=== PATIENT | male | born 1930 | race Caucasian/White ===

== ENCOUNTER 2016-12-29 09:47 | Inpatient (IN) | payer MEDICARE ==
[2016-12-29] VITALS (8 sets, daily range): BP systolic 115–132; BP diastolic 33–48; PULSE 41–45; RESP 9–20; O2SAT 95–99
[~2016-12-29] VITALS: Ht 175.3 cm; Wt 78.2 kg
--- NOTE | 2016-12-29 10:43 | ED.REPORT ---
HPI-Dizziness / Weakness Date of Service December 29, 2016 ED Provider: Wendy Davis MD Patient is an 86 year old male with a history of chronic renal failure and receives dialysis, diabetes, hypertension and a stent placement who was brought to the ED via EMS due to weakness. Associated symptoms include trouble walking and diarrhea onset two days ago. He denies dizziness, shortness of breath, chest pain, abdominal pain, nausea, or headache. Patient reports that he is normally able to urinate but has not today. The patient was seen three days ago at the ED on [address] because he thought he had constipation but then he had diarrhea. He was supposed to have dialysis three days ago but missed his appointment. Nursing Notes Stated Complaint: WEAKNESS Chief Complaint: Weakness Nursing Notes Reviewed: Yes Allergies: Coded Allergies: No Known Allergies (Verified , 12/29/16) Scheduled Aspirin (Aspirin) 81 Mg Tablet 81 MG PO DAILY Carvedilol (Carvedilol) 25 Mg Tablet 25 MG PO BID Finasteride (Finasteride) 5 Mg Tablet 5 MG PO DAILY Furosemide (Furosemide) 20 Mg Tab 20 MG PO DAILY Insulin Human Isophan/Regular (HUMulin 70/30 U100 Insulin Vial) 100 Unit/Ml Ml 10 UNIT SUBQ MORNING Insulin Human Isophan/Regular (HUMulin 70/30 U100 Insulin Vial) 100 Unit/Ml Ml 8 UNIT SUBQ HS Lisinopril (Lisinopril) 40 Mg Tablet 20 MG PO DAILY Lovastatin (Lovastatin) 40 Mg Tablet 40 MG PO HS Nifedipine ER (Nifedipine ER) 90 Mg Tab.er.24 90 MG PO DAILY Terazosin (Terazosin) 5 Mg Capsule 10 MG PO HS Vit B Comp/C/FA/Iron/Vit E (Vitamin B Complex Tablet) 1 Each Tablet 1 EACH PO Dilysis Days General Time Seen by MD: 10:42 Chief Complaint Generalized weakness Hx Obtained From: Patient Arrived By: Ambulance Onset Occurred: Yesterday Associated with: Reports: Weakness, Denies: Chest pain, Headache, Nausea Recent Healthcare: No recent hospitalization, Recent doctor visit Past Medical History Past Medical History chronic renal failure with dialysis treatment Reports: Diabetes mellitus, Hypertension Past Surgical History STENT placement Social History Other Social History: Ambulatory Status Independent Review of Systems Respiratory: Denies: Non-productive cough, Shortness of breath Cardiovascular: Denies: Chest pain GI: Reports: Diarrhea, Denies: Abdominal pain, Nausea Neurologic: Reports: Problem walking, Denies: Dizziness, Headache Complete sys rev & neg: except as marked. Physical Exam Initial Vital Signs Vital Signs (First) Date Time Temp Pulse Resp B/P Pulse Ox O2 Delivery O2 Flow Rate FiO2 12/29/16 11:07 36.6 44 18 126/36 95 Room Air Initial VS: Reviewed, Vital signs abnormal General/Constitutional: Awake, Alert, No acute distress Head / Eyes: Atraumatic, Normocephalic, PERRL, EOMI Respiratory / Chest: Atraumatic, Breath sounds NL, Breath sounds = bilat, No respiratory distress Heart Rate / Rhythm: Positive: Bradycardia Neurologic: Oriented X3, Speech NL, No motor deficits, No sensory deficits Abdomen: Atraumatic, Soft, Non-tender Lower Extremity / Pelvis / MS: Atraumatic, Full range of motion trace edema on both legs Skin: Atraumatic, Color NL, No rash, Warm, Dry Sacral erythema and a half centimeter stage II decubitus ulcer to his gluteal cleft. Psychiatric: Affect NL, Mood NL Upper Extremity / MS: Atraumatic, Full range of motion Interpretation & Diagnostics Lab Results Interpretation Result Diagram: 12/29/16 1100 12/29/16 1100 Test 12/29/16 11:00 White Blood Count 8.3th/mm3 (3.8-10.1) Red Blood Count 2.85mil/mm3 (4.40-5.80) Hemoglobin 8.8g/dL (13.8-17.2) Hematocrit 27.9% (41.0-50.0) Mean Corpuscular Volume 97.9fL (81-100) Mean Corpuscular Hemoglobin 30.9pg (27.0-35.0) Mean Corpuscular Hemoglobin Concent 31.5% (32.0-37.0) Red Cell Distribution Width 15.6% (12.3-15.4) Platelet Count 133bil/L (150-400) Neutrophils (%) (Auto) 80.4% (40-74) Lymphocytes (%) (Auto) 11.3% (14-46) Monocytes (%) (Auto) 7.6% (4-12) Eosinophils (%) (Auto) 0.5% (0-5) Basophils (%) (Auto) 0.1% (0-3) Prothrombin Time 11.8sec (8.1-12.5) Prothromb Time International Ratio 1.10ratio Sodium Level 138mEq/L (134-144) Potassium Level 3.6mEq/L (3.5-5.2) Chloride Level 93mEq/L (97-108) Carbon Dioxide Level 26mmol/L (18-29) Blood Urea Nitrogen 49mg/dL (8-27) Creatinine 5.19mg/dL (0.76-1.27) Estimat Glomerular Filtration Rate 11mL/min (>59) Glucose Level 348mg/dL (60-99) Calcium Level 8.8mg/dL (8.5-10.1) Magnesium Level 2.1mg/dL (1.6-2.6) Total Bilirubin 0.3mg/dL (0.0-1.2) Aspartate Amino Transf (AST/SGOT) 16U/L (0-50) Alanine Aminotransferase (ALT/SGPT) 8U/L (0-44) Alkaline Phosphatase 63U/L (25-160) Troponin T 0.369ug/L (0.0-0.011) Total Protein 5.5g/dL (6.4-8.4) Albumin 3.2g/dL (3.4-5.0) Hold Rodriguez Top Tube Received (Received) ECG Interpretation ECG Interpretation: 3rd degree AV block with junctional escape rhythm rate 45 Time: 11:10 Interpreted by: ED physician X-Ray Chest Interpretation Chest Xray Interpretation: IMPRESSION: Cardiomegaly without overt heart failure. No definite pneumonia. Dictated by: Hair Curran M.D. on 12/29/2016 at 10:58 Approved by: Hair Curran M.D. on 12/29/2016 at 11:02 View: Portable, 1 view Interpretation / Wet Read by: Interpret - Radiologist Re-Eval/Medical Decision Med Decision/Clinical Course The patient presents with weakness which is likely related to his bradycardia and heart block. Patient is on Coreg which could be causing his symptoms or he may need a pacemaker. His weakness also be related to a NSTEMI. I spoke with Dr. Marroquin regarding this patient. While in bed the patient does not have any complaints and maintains his blood pressure. The patient is on dialysis and another consideration was electrolyte abnormality, he does not have any significant change would explain his symptoms. Re-Evaluation/Progress : Time of Eval: 11:43 Re-Evaluation/Progress Note: Discussed plan for admit. The patient understands and agrees to the plan for admit. All questions were addressed. 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: Agrees with eval, Agrees with plan, Accepts admit Consultation #2: Referral / Consult Name: Refugio Travis MD Consulted With: Neurology Call Returned at: 12:49 Oil Pipeline Operator: Agrees with eval, Agrees with plan Consultation #3: Referral / Consult Name: Josafat Mcdonald Consulted With: Hospitalist Call Returned at: 13:04 Oil Pipeline Operator: Agrees with eval, Agrees with plan, Accepts admit Counseled Regarding: Diagnosis, Lab results, Need for admission Patient Discharge & Departure Impression: Primary Impression: AV block, 3rd degree Additional Impression: NSTEMI (non-ST elevated myocardial infarction) Disposition: ADMITTED TO HOSPITAL Discharge Condition All VS Reviewed: Yes Condition: Stable Referrals: Denilson Kwan DO (PCP) Elliot Attestation Portions of this note were transcribed by Luz Trinidad. I, Dr. Davis personally performed the history, physical exam and medical decision-making; I reviewed and confirmed the accuracy of the information in the transcribed note. Signed by: Elliot Rodriguez, 12/29/16 and 1100 Denilson Kwan Jena M MD December 29, 2016 10:43 Cate Trinidad December 29, 2016 10:54
[2016-12-29] MEDS ORDERED: 0.9% Sodium Chloride 250 ML IV ONE (10:55)
[2016-12-29 11:22] LABS: BASOPHILS % (AUTO) 0.1 % (0-3); EOSINOPHILS % (AUTO) 0.5 % (0-5); MONOCYTES % (AUTO) 7.6 % (4-12); Mean Corpuscular Hemoglobin 30.9 pg (27.0-35.0); Mean Corpuscular Volume 97.9 fL (81-100); NEUTROPHILS % (AUTO) 80.4 % (40-74); Platelet Count 133 bil/L (150-400)
[2016-12-29 11:31] LABS: INR 1.1 ratio
--- NOTE | 2016-12-29 12:03 | DRSVH ---
PROCEDURE: X-RAY CHEST ONE VIEW, PORTABLE ([id number]) INDICATIONS: weakness TECHNIQUE: One view of the chest was acquired. COMPARISON: None. FINDINGS: Surgical changes and devices: None. Lungs and pleura: No pleural effusions or pneumothorax. Lungs are clear. Mediastinum: Mediastinal contours appear normal. Heart size is enlarged. There is aortic atheroscl erosis. Bones and chest wall: No suspicious bony lesions. Overlying soft tissues appear unremarkable. IMPRESSION: Cardiomegaly without overt heart failure. No definite pneumonia. Dictated by: Hair Curran M.D. on 12/29/2016 at 10:58 Approved by: Hair Curran M.D. on 12/29/2016 at 11:02
[2016-12-29 12:14] LABS: Magnesium 2.1 mg/dL (1.6-2.6)
[2016-12-29 12:26] LABS: TROPONIN T 0.369 ug/L (0.0-0.011)
[2016-12-29] MEDS ORDERED: LISI40TA PO (12:50)
[2016-12-29] MEDS ORDERED: TERA5CAP6 PO (12:50)
[2016-12-29] MEDS ORDERED: LOVA40TA PO (12:50)
[2016-12-29] MEDS ORDERED: ASPI-973 PO (12:50)
[2016-12-29] MEDS ORDERED: INS7030 SUBQ ×2 (12:50)
[2016-12-29] MEDS ORDERED: CARV25TA2 PO (12:50)
[2016-12-29] MEDS ORDERED: NIFE90TA31 PO (12:50)
[2016-12-29] MEDS ORDERED: VIT1TABL83 PO (12:50)
[2016-12-29] MEDS ORDERED: FUR20 PO (12:50)
[2016-12-29] MEDS ORDERED: FINA5TAB9 PO (12:50)
[2016-12-29] MEDS ORDERED: Ondansetron 2 mg/mL 2 mL Inj IVPUSH PRN ×2 (13:20→15:25)
[2016-12-29] MEDS ORDERED: Alum-Mag Hydrox-Simeth 30 mL Suspension PO PRN ×2 (13:20→15:25)
[2016-12-29] MEDS ORDERED: Polyethylene Glycol (PEG) 17 Gm Powder PO PRN (15:25)
--- NOTE | 2016-12-29 15:59 | CONS ---
[address] [address] CONSULTATION REPORT PATIENT: CRISELDA FOSS : 1930 MR#: [id number] ADMIT: 12/29/2016 JOB ID: [id number] RENAL CONSULTATION: DATE OF SERVICE: 12/29/2016 HISTORY: The patient is a very pleasant, 86-year-old, white male, who was admitted to [facility] for acute third-degree AV block. He has a history of end-stage renal disease and missed his dialysis treatment yesterday. Renal consultation is being sought for further evaluation of his end-stage renal disease. He states that he has recently started dialysis and is dialyzed over at the [facility]. He is followed by an outside second officer. He states that he has had seven treatments and was scheduled to have a treatment yesterday which he missed due to diarrhea. He states that he had diarrhea for about 1-2 days and this apparently has improved with some [id number] Imodium. He denies any associated nausea, vomiting, fever, chills, cough, wheezing, or sore throat. He states that today he had some mild weakness and subsequently experienced a near syncopal episode without full loss of consciousness. He was brought to the emergency department and in the emergency department, he was found to have a third-degree AV block. Paradoxically his potassium was 3.6. He denies any associated chest pain, shortness of breath, dizziness, lightheadedness, headache, scotomas, or amaurosis fugax. He denies any seizure history or any reports of any seizure or incontinence. As noted above, he recently started dialysis. The etiology of his renal failure is most likely due to diabetes and hypertensive renal disease. He also has a history of hyperlipidemia, coronary artery disease, and has undergone stent placement in 2005. He denies a history of any prior stroke or congestive heart failure. Since starting dialysis, he states that he has not had any problems with breathing or worsening of his symptomatology until recently. He does have some dyspnea on exertion and some intermittent lower extremity edema. Otherwise he denies any cough, wheezing, orthopnea or rashes. PAST MEDICAL HISTORY: Significant for: 1. End-stage renal disease-dialysis dependent. 2. 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 3. Hypertension with hypertensive heart disease and hypertensive nephrosclerosis. 4. Coronary artery disease with stent placement as detailed above. 5. Benign prostatic hypertrophy. 6. History of skin cancer. He denies any history of any thyroid illness, or other malignancies. PAST SURGICAL HISTORY: Significant for a left AV fistula placed in [facility] in October, and coronary artery stent placed in 2004. ALLERGIES: He is not allergic to any food or any medications. SOCIAL HISTORY: He currently denies use of any alcohol, tobacco, or illicit drugs. He lives with his family and is able to take care of his basic activities of daily living and personal needs. MEDICATIONS: At time of admission include aspirin, carvedilol, finasteride, furosemide, insulin, lisinopril, lovastatin, nifedipine, terazosin, and vitamin tablet. FAMILY HISTORY: Noncontributory. REVIEW OF SYSTEMS: Detailed above. Otherwise is noncontributory. PHYSICAL EXAMINATION: Revealed a well-developed, 86-year-old, white male who was alert and oriented x3, in no distress at time of my evaluation. Blood pressure 126/36 with a pulse rate of 44. HEENT examination is remarkable for pale sclerae. Neck is supple without adenopathy, thyromegaly or jugular venous distention. Lungs showed a few bibasilar rales but otherwise were clear. Heart was regular and rhythmical, although quite bradycardic and there was a grade 2/6 systolic ejection murmur. Abdomen is soft, without tenderness, rebound, guarding, masses or hepatosplenomegaly. Extremities did not show any evidence of any clubbing, cyanosis, or edema. Skin turgor was good and there were no evidence of any rashes. He did have a number of areas of hypopigmentation and scarring on his head and face from old skin cancers which have been treated. LABORATORY EXAMINATION: His white count was 8.3, hemoglobin 8.8, hematocrit 24.9, red cell indices, platelet count and differential were normal. His PT was 11.8, PTT was 1.1. Sodium is 138, potassium 3.6, chloride of 93, bicarbonate 26, BUN and creatinine were 49 and 5.19. Glucose was 348. IMPRESSION: 1. End-stage renal disease-dialysis dependent. 2. Hypertension with hypertensive heart disease and hypertensive nephrosclerosis. 3. Diabetic nephropathy. 4. Third-degree atrioventricular block. 5. Benign prostatic hypertrophy. RECOMMENDATION: The patient will be dialyzed today for 4 hours on a MAX Dialyzer, for potassium bath, 450 blood flow, 1200 unit bolus of heparin and 500 per hour and will take approximately 1 L of fluid off of him today. I will schedule him for a follow up treatment tomorrow. Once again, I would like to thank you for allowing me to participate in the care of this most pleasant and interesting patient. I will be following him closely with you. TOTAL TIME: 45 minutes.
[2016-12-29] MEDS: Heparin 5,000 Unit/mL Inj SUBQ SCH (16:38)
--- NOTE | 2016-12-29 16:41 | PCM.HPMED ---
Subjective Date of Service December 29, 2016 Primary Provider: Admitting Physician: Josafat Mcdonald Primary Care Physician: Denilson Kwan DO Attending Physician: Josafat Mcdonald Admit Status: From the Emergency Department Chief Complaint: Generalized weakness. History of Present Illness: Mr. Deleon is an 86-year-old gentleman with a history of chronic renal insufficiency on hemodialysis (,,Sun) secondary to diabetic nephropathy, hypertension, and coronary artery disease status post stent placement in the . He presented to the emergency department via EMS for generalized weakness after his leg "gave out" after breakfast. He states that he has been in his usual health until two days ago when he presented to the hospital in [place] for constipation. He states that he thought he was constipated but it turns out he actually had diarrhea. He states that he was given an enema and that they didn't really seem to know what they were doing. He denies fever, chills, abdominal pain, bloody or dark stool. He reports that he is normally able to urinate but has not today and missed his dialysis due to his diarrhea. His last dialysis appointment was on Sunday (12/26/16). Additionally he denies dizziness, shortness of breath, chest pain, focal weakness, changes in speech or loss of consciousness. In the emergency department, vitals: 36.6, BP 126/36, HR 44, SpO2 95% on room air. Labs significant for Troponin 0.369, BUN 49, Creatinine 5.19, Sodium 138, Potassium 3.6, Chloride 93, Bicarb 26, Glucose 348. Hb 8.8, Hct 27.9. ECG 3rd degree AV block with junctional escape rhythm rate 45. Chest xray shows cardiomegaly and focal consolidation. Review of Systems: A comprehensive review of systems was conducted with the patient and found to be negative except as above in the History of Present Illness. Allergies Coded Allergies: No Known Allergies (Verified , 12/29/16) Home Medications Aspirin 81 MG PO DAILY Carvedilol 25 MG PO BID Finasteride 5 MG PO DAILY [id number] MG PO DAILY HUMulin 70/30 U100 Insulin Vial, 10 UNIT SUBQ MORNING HUMulin 70/30 U100 Insulin Vial, 8 UNIT SUBQ HS Lisinopril 20 MG PO DAILY Lovastatin 40 MG PO HS Nifedipine ER 90 MG PO DAILY Terazosin 10 MG PO HS Vitamin B Complex1 EACH PO Dialysis Days Exam Lab & Micro Results Microbiology 12/30/16 MRSA (PCR) - Final, Complete Review of Systems: Constitutional: Negative, except as otherwise mentioned in the history above. Ophthalmologic: Negative, except as otherwise mentioned in the history above. Cardiovascular: Negative, except as otherwise mentioned in the history above. Respiratory: Negative, except as otherwise mentioned in the history above. Gastrointestinal: Negative, except as otherwise mentioned in the history above. Genitourinary: Negative, except as otherwise mentioned in the history above. Musculoskeletal: Negative, except as otherwise mentioned in the history above. Neurological: Negative, except as otherwise mentioned in the history above. Psychiatric: Negative, except as otherwise mentioned in the history above. Hematologic/Lymphatic: Negative, except as otherwise mentioned in the history above. Allergic/Immunologic: Negative, except as otherwise mentioned in the history above. PMH Diabetes mellitus, on insulin therapy. Chronic renal failure, on dialysis T,Th,Sat Hypertension Hyperlipidemia Coronary artery disease s/p stent placement in . Surgical History STENT placement Family History Patient reports history of diabetes, hypertension and heart disease in multiple family members. Father, mother and brother. Social History Occupation: Retired Hx Alcohol Use: Yes ("Ocassionally") Hx Substance Use: No Hx Tobacco Use: No Smoking Status: Never Smoker Living Arrangement: with Family Additional Information Mr. 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 He now lives in [place] with his . He has no children. Drinks alcohol occasionally. Denies tobacco or other drugs. Exam Vital Signs Vital Sign - Last Date Time Temp Pulse Resp B/P Pulse Ox O2 Delivery O2 Flow Rate FiO2 12/29/16 13:46 36.7 43 18 132/42 96 Room Air Exam General: Well appearing, elderly male, in no acute distress. Alert and oriented. HEENT: Normocephalic, atraumatic. External ears without defect. Pupils equal, round, and reactive to light and accommodation. Anicteric sclerae. Oral mucosa pink/moist. Neck: Supple, nontender, no JVD, bruits or lmphadenopathy appreciated. Cardiovascular: Bradycardic with regular rhythm, no murmurs, rubs or gallops heard. Pulmonary: Clear to auscultation bilaterally with no crackles, wheezes, or rhonchi. Abdomen: Bowel tones present. Soft, nontender, nondistended. No hepatosplenomegaly or masses appreciated. Extremities: Moderate pitting edema to just below the knee bilaterally. No cyanosis or clubbing. Left antecubital AV fistula, no erythema, tenderness or induration. Skin: Normal temperature, turgor, and texture; no rashes. Mild sacral erythema and a half centimeter abrasion on gluteal cleft. Neurological: Cranial nerves grossly intact.Normal muscle strength, tone, and bulk. No known gait impairment. Psychiatric: Normal mood and affect. Alert and oriented to person, place, and time. Lab and Diagnostics Labs Laboratory Tests Test 12/29/16 11:00 White Blood Count 8.3th/mm3 (3.8-10.1) Red Blood Count 2.85mil/mm3 (4.40-5.80) Hemoglobin 8.8g/dL (13.8-17.2) Hematocrit 27.9% (41.0-50.0) Mean Corpuscular Volume 97.9fL (81-100) Mean Corpuscular Hemoglobin 30.9pg (27.0-35.0) Mean Corpuscular Hemoglobin Concent 31.5% (32.0-37.0) Red Cell Distribution Width 15.6% (12.3-15.4) Platelet Count 133bil/L (150-400) Neutrophils (%) (Auto) 80.4% (40-74) Lymphocytes (%) (Auto) 11.3% (14-46) Monocytes (%) (Auto) 7.6% (4-12) Eosinophils (%) (Auto) 0.5% (0-5) Basophils (%) (Auto) 0.1% (0-3) Prothrombin Time 11.8sec (8.1-12.5) Prothromb Time International Ratio 1.10ratio Sodium Level 138mEq/L (134-144) Potassium Level 3.6mEq/L (3.5-5.2) Chloride Level 93mEq/L (97-108) Carbon Dioxide Level 26mmol/L (18-29) Blood Urea Nitrogen 49mg/dL (8-27) Creatinine 5.19mg/dL (0.76-1.27) Estimat Glomerular Filtration Rate 11mL/min (>59) Glucose Level 348mg/dL (60-99) Calcium Level 8.8mg/dL (8.5-10.1) Magnesium Level 2.1mg/dL (1.6-2.6) Total Bilirubin 0.3mg/dL (0.0-1.2) Aspartate Amino Transf (AST/SGOT) 16U/L (0-50) Alanine Aminotransferase (ALT/SGPT) 8U/L (0-44) Alkaline Phosphatase 63U/L (25-160) Troponin T 0.369ug/L (0.0-0.011) Total Protein 5.5g/dL (6.4-8.4) Albumin 3.2g/dL (3.4-5.0) Hold Rodriguez Top Tube Received (Received) X-Rays, CTs and MRIs (12/29/16) X-RAY CHEST ONE VIEW, PORTABLE IMPRESSION: Cardiomegaly without overt heart failure. No definite pneumonia. Dictated and approved by: Hair Curran M.D. on 12/29/2016 at 10:58 12-lead ECG ECG 3rd degree AV block with junctional escape rhythm rate 45 Assessment & Plan 86-year-old gentleman with a history of chronic renal insufficiency on hemodialysis (T,Th,Sat) secondary to diabetic nephropathy, hypertension, and coronary artery disease status post stent placement in the . He presented to the emergency department with generalized weakness and subsequently admitted for further evaluation and management of third degree AV block and possible NSTEMI. 1. AV block, 3rd degree. Present on admission. Active. -Uncertain chronicity. Possibly secondary to ischemic heart disease, hypo- or hyper thyroidism,or medications (patient on beta chrissy, calcium channel chrissy). -Troponin elevated, 0.032. -Will check TSH/T4 -Cardiology recommend holding beta chrissy, calcium channel chrissy for 48hrs. If block does not resolve, will evaluate for pacemaker placement. -Monitor on telemetry -Trend troponin. -Continue aspirin 81mg daily, lovastatin 40mg QHS. -Transcutaneous pacer pads 2. Possible secondary to NSTEMI , acute. Present on admission. Active. -Elevated troponin, 0.032. Patient has known coronary artery disease and multiple risk factors: hypertension, hyperlipidemia, diabetes, age. It is possible elevated troponin is secondary to chronic renal failure, or demand ischemia. ECG showed 3rd degree AV block no acute ST changes. -Monitor on telemetry. -Continue statin, aspirin -Hold carvedilol, as above -Trend troponin -SL nitro and IV morphine prn for chest pain, as long as BP tolerates 3. Chronic renal failure. Present on admission. Active -Likely secondary to diabetic and hypertensive nephropathy. Patient started on dialysis approximately 2 weeks ago. Missed Thurs dialysis due to diarrhea. -Last dialyzed on 12/27. -Nephrology consulted from the emergency dept. -Dialysis, IV fluids and diuretics. Per nephrology. Appreciate recommendations -Hold furosemide 20mg daily, pending dialysis and Nephrology recs. -Hold lisinopril -Follow BMP 4. Diabetes mellitus, chronic. Present on admission. Presumed stable. -Home regimen: Regular insulin 70/30- 10U subq QAM; Regular insulin 8U subq HS -HbA1c pending -Low dose correctional insulin lispro ordered -Start basal insulin when patient eating. 5. Hypertension, chronic. Present on admission. Presumed stable. -Currently normotensive. -Hold carvedilol, as above. -Hold home anti-hypertensives, as above. 6. Anemia, unknown chronicity. Present on admission. Presumed stable. -Likely chronic and secondary to chronic renal insufficiency. -Hb 8.8 on admission. No signs/symptoms of blood loss or active bleeding. -Follow H/H Acetaminophen-fever/headache/mild/moderate pain Antiemetics, as needed Bowel regimen, as needed. Disposition: Patient admitted under inpatient status with expected length of stay > 2 midnights for severity of present symptoms, complexities of treatment plan and risk for adverse event. VTE Prophylaxis: Sub-Q Heparin (Unfractionated) Resuscitation Status: DNR/DNI:Do Not Resuscitate/Intubate (discussed and verified with patient) Attending Statement The patient was seen and examined together with Resident/House-staff on 12/29/16 and I agree with the history, exam and plan as outlined in the note above. Chelsea Cuellar DO December 29, 2016 13:54 Josaaft Mcdonald January 11, 2017 17:36
--- NOTE | 2016-12-29 16:49 | NUR ---
Admit note Patient admitted from [facility] ER via stretcher, amb in room with sba steady gait. Tele 3rd degree HB, HR 40's. See vitals. Patient denies pain, nausea or sob. 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 Left arm fistula with good bruit and thrill, furniture duster paged per Mercedes RN and dialysis equipment set up. Patient oriented to call light, tv, phone, bathroom and poc. Will cont to monitor.
[2016-12-29] MEDS ORDERED: Dextrose 10% 250 ML IV PRN (20:05)
[2016-12-29] MEDS ORDERED: Insulin Human NPH-Reg 70-30 100 Unit/mL 10 ML Mdv SUBQ SCH ×2 (20:30)
[2016-12-29] MEDS: Insulin Human REGular 300 Unit/3 mL Inj SUBQ SCH (20:30)
--- NOTE | 2016-12-29 23:09 | NUR ---
Dialysis note: 4 hr tx, Net UF 1000. Pt has left UA fistula used 7 times. I was unable to access x 2 tries, and called Ana richmond, over to access. 17 g needles, lidocaine used, total attempts: arterial x 3, venous x 2. QB 250 with arterial pressures 130, venous pressures 130 - 140. Pt is bradycardiac, HR 40 - 44. Had intermittent PVCs throughout tx; primary RN aware. Pt was stable, calm, resting or talking throughout tx. Site held by RN x 7 min and secured with tape and gauze. Pt stable in room at end of tx. Please see DTR for complete record of VS.
[2016-12-30] VITALS (10 sets, daily range): BP systolic 118–163; BP diastolic 33–91; PULSE 41–45; RESP 13–20; O2SAT 93–99
[2016-12-30] MEDS: Heparin 5,000 Unit/mL Inj SUBQ SCH ×4 (01:56→23:55)
[2016-12-30] MEDS: Insulin Human REGular 300 Unit/3 mL Inj SUBQ SCH ×4 (02:30→20:38)
--- NOTE | 2016-12-30 05:57 | NUR ---
Tele Patient continues to be in 3rd degree AV block with heart rates 39-44. Pacer pads in place and zoll unit at bedside. Patient denies chest discomfort or shortness of breath. Continue to monitor.
[2016-12-30 07:42] LABS: BASOPHILS % (AUTO) 0.5 % (0-3); EOSINOPHILS % (AUTO) 2.7 % (0-5); MONOCYTES % (AUTO) 10.3 % (4-12); Mean Corpuscular Hemoglobin 30.7 pg (27.0-35.0); Mean Corpuscular Volume 98.2 fL (81-100); NEUTROPHILS % (AUTO) 64.8 % (40-74); Platelet Count 128 bil/L (150-400)
[2016-12-30 08:56] LABS: TROPONIN T 0.376 ug/L (0.0-0.011)
--- NOTE | 2016-12-30 09:31 | CONS ---
[address] [address] CONSULTATION REPORT PATIENT: CRISELDA FOSS : 1930 MR#: [id number] ADMIT: 12/29/2016 JOB ID: [id number] DATE: 12/30/2016 CARDIOLOGY CONSULTATION: Dr. Cuellar has asked that I consult on this 86-year-old male admitted to the emergency department with bradycardia from complete heart block. DATE OF SERVICE: HISTORY: The patient's cardiac history dates back to 2004 when he presented with progressive exertional angina and known renal insufficiency with a creatinine of 2.0. He had a left anterior fascicular block at that time, and underwent stress testing that showed a large distal anterior, apical, and distal inferior area of ischemia and, therefore, underwent cardiac catheterization in 2005 revealing a 90% stenosis in a large LAD after the takeoff of a large diagonal which itself had a 70% proximal stenosis but no other significant coronary disease. His ejection fraction was 74% with apical akinesis. A bare metal stent was placed to the LAD and angioplasty to the diagonal with resolution of his angina with a post procedural creatinine at 2.3. He subsequently failed followup and has not seen a painter and body work since then but states that he has done well, remaining fairly active although with progressive renal insufficiency requiring institution of hemodialysis around one month ago in [place]. He was generally doing well until two days prior to admission when he developed some diarrhea that caused him to miss a hemodialysis appointment and the following day noted profound weakness when he got up to walk and had to sit down on the floor but had no presyncopal symptoms. Medics were summoned and found him to have a heart rate of 42 and he was brought to the emergency department where his ECG showed a complete heart block at 42, with a probable junctional escape with a left anterior fascicular block. He had no sense of any chest discomfort or change in his chronic dyspnea which actually has been improving since initiation of his dialysis. No abdominal discomfort. He has been on carvedilol 25 mg b.i.d. for years and took his last dose yesterday morning. While at rest, he is essentially asymptomatic and his carvedilol has been held. His potassium was 3.6 with a BUN of 49 and a creatinine of 5.2 with a glucose of 348 and underwent hemodialysis yesterday, but remained in complete heart block this morning. He denies any anginal symptoms or significant dyspnea. He has had some recent edema that improved after hemodialysis. He has not noted any change in his exercise capacity until yesterday. CARDIAC RISK FACTORS: Notable for significant diabetes, hypertension and hyperlipidemia. He has never smoked. He denies any family history of any premature coronary artery disease except for hypertension. PAST MEDICAL HISTORY: Only notable for his diabetes and renal failure. HOME MEDICATIONS: 1. Aspirin 81 mg daily. 2. Carvedilol 25 mg b.i.d. 3. Finasteride 5 mg daily. 4. Furosemide 20 mg daily. 5. Humulin insulin. 6. Lisinopril 20 mg daily. 7. Lovastatin 40 mg q.h.s. 8. Nifedipine 90 mg daily. 9. Terazosin 10 mg q.h.s. 10. Vitamin D. FAMILY HISTORY: As above. 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 He has two alcoholic beverages on average per month. REVIEW OF SYSTEMS: A complete review is performed and is notable for the absence of any recent fevers or chills. He has had a 10-pound weight loss over the last 1-2 months since starting hemodialysis. He denies any recent vision changes or ENT problems although is somewhat hard of hearing. He has had chronic exertional dyspnea which is improved since initiating dialysis. He denies any cough or hemoptysis. No history of any peptic ulcer disease or GI blood loss. Denies any genitourinary complaints or hematuria. He continues to have good urine output. Denies any musculoskeletal complaints. Denies any neurologic symptoms although was evaluated for a possible TIA in 1999 but this was never confirmed, and has not had any problems since then. Denies any history of any thyroid or bleeding disorder. Denies any unusual anxiety or depression. PHYSICAL EXAMINATION: Very pleasant, elderly white male lying comfortably in bed in no distress. HR 42, BP 151/46, O2 saturation 97% on room air. Weight is 81.9 kg, up from 80.4 kg yesterday. Skin: Warm and dry. The nurses report a small decubitus ulcer on his right buttock. He states this is from sitting in dialysis and now takes a pillow to dialysis. HEENT: EOMI. Without arcus. He has fair dentition. Lungs: Clear to auscultation and percussion. No rales or wheeze. CV: Nonpalpable PMI with a slow regular rhythm with a 2/6 systolic ejection murmur that radiates to both carotids but to have a normal upstroke without any appreciable bruit. JVP is 7-8 cm. Dorsalis pedis is 2+ on the right and nonpalpable on the left while posterior tibial pulse is nonpalpable on the right and 2+ on the left. Abdomen: Soft, nondistended, nontender without any palpable masses or organomegaly. Normal bowel tones are present without bruits. Extremities: Warm with trace bilateral foot edema. Neuro: Moves all four extremities. Psych: Awake, alert and oriented. LABORATORY: His initial troponin was 0.369 and has subsequently fallen. His potassium yesterday was 3.6 with a BUN of 49 and a creatinine of 5.2, and is pending this morning. White count is 6.0 with a hematocrit of 27%. TSH is normal at 2.2 and his total cholesterol is 101 with an LDL of 52 and an HDL of 27. EKG: Shows a complete heart block at 42 BPM with a probable junctional escape with a left anterior fascicular block. Chest x-ray: Shows no evidence of CHF. IMPRESSION: 1. 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 He remained hemodynamically stable. I would continue to let his carvedilol washout. If he continues to have evidence of high-grade AV block 48 hours after his last dose, which would be sometime tomorrow, then pacemaker implantation would be indicated. I have discussed this with him and he is agreeable to proceed with this. This can be scheduled either Sunday or Sunday. His decubitus ulcer should be aggressively treated in an effort to avoid any possible skin infection that could compromise the sterility at the time of implantation. In the meantime, I would simply continue to monitor him and avoid any AV cristobal blocking agents. 2. Coronary artery disease status post stenting. He gives no anginal symptoms and I suspect that his elevated troponin is simply a reflection of his renal insufficiency. An echocardiogram will be obtained. I would not pursue any ischemic evaluation at this point. 3. Diabetes, poorly controlled. Per the hospitalist. 4. Hyperlipidemia. Adequately controlled, but I would change him to atorvastatin. 5. Hypertension. Continue with CHELI inhibitor with management per the nephrology team. 6. Decubitus ulcer. Will need to be monitored closely. PLAN: 1. Continue to withhold carvedilol and any other AV cristobal anti blocking agent. 2. Check an echocardiogram. 3. Continue to track electrolytes and renal function. 4. Consider pacemaker implantation on Sunday or Sunday depending on his decubitus ulcer and availability of a pacemaker implanting painter and body work. I spent 1 hour and 42 minutes reviewing the patient's records, discussing with Dr. Kraft, interviewing and examining the patient, and answering his questions. ALTHEA
--- NOTE | 2016-12-30 12:29 | PCM.PNNEPH ---
Subjective Date of Service December 30, 2016 Subjective The patient remains in bradycardic third-degree block. He offers no new complaints and denies any headache, chest pain, shortness of breath, nausea or vomiting. Exam Vital Signs Vital Sign - Last Date Time Temp Pulse Resp B/P Pulse Ox O2 Delivery O2 Flow Rate FiO2 12/30/16 12:12 36.9 45 16 118/91 97 Room Air Intake and Output 12/29/16 12/29/16 12/30/16 Cumulative From/Thru 15:00 23:00 07:00 12/29/16 11:07 - 12/30/16 05:37 Intake Total 250 ml 250 ml Output Total 1000 ml 100 ml 1100 ml Balance 250 ml -1000 ml -100 ml -850 ml Intake IV Total 250 ml 250 ml Output Urine Total 100 ml 100 ml Ultrafiltrate 1000 ml 1000 ml Exam Neck is supple without adenopathy, thyromegaly, or jugular venous distention. Lungs are clear to auscultation. Heart is quite bradycardic with an estimated rate between 40 and 50. Abdomen is soft without any tenderness or rebound guarding masses or hepatosplenomegaly. Extremities do not show any evidence of any clubbing, cyanosis, or edema. Skin turgor is good. Lab and Diagnostics Result Diagram: 12/30/16 0732 12/30/16 0732 X-Rays, CTs and MRIs (12/29/16) X-RAY CHEST ONE VIEW, PORTABLE IMPRESSION: Cardiomegaly without overt heart failure. No definite pneumonia. Dictated and approved by: Hair Curran M.D. on 12/29/2016 at 10:58 12-lead ECG ECG 3rd degree AV block with junctional escape rhythm rate 45 Plan Impression Impression #1 end-stage renal disease dialysis dependent number to diabetic nephropathy #3 hypertension with hypertensive heart disease and hypertensive nephrosclerosis number for third-degree AV block. 5 benign prostatic hypertrophy. Recommendations #1 I would like to do a short dialysis treatment on him today to get him back in his usual schedule. The patient is to be dialyzed today for 2-1/2 following A Max Dialyzer, 400-450 Blood Flow As Tolerated, 600 Dialysate Flow, We Will Use 17-gauge Sasser, 3 Potassium Bath, 1200 of Heparin Bolus and We Will Attempt to Take 1-1/2 L of fluid. Felix Travis DO December 30, 2016 12:29
--- NOTE | 2016-12-30 15:14 | PCM.PNMED ---
Subjective Date of Service December 30, 2016 Subjective Mr. Deleon is an 86-year-old gentleman with a history of chronic renal insufficiency on hemodialysis (T,Th,Sat) secondary to diabetic nephropathy, hypertension, and coronary artery disease status post stent placement in the . He presented to the emergency department with generalized weakness and was subsequently admitted for further evaluation and management of third degree AV block, possible NSTEMI and chronic renal failure. Admitted to [facility] with telemetry and transcutaneous pacer pads in place. Per nursing, patient had a restful night with continued third degree AV block with heart rates 40s. He was dialyzed with 1L fluid removed. Today he states that he is doing well and without symptoms. He denies dizziness, chest pain, shortness of breath, abdominal pain, nausea or vomiting. Exam Vital Signs Vital Sign - Last Date Time Temp Pulse Resp B/P Pulse Ox O2 Delivery O2 Flow Rate FiO2 12/30/16 14:00 44 12/30/16 12:12 36.9 16 118/91 97 Room Air Intake and Output 12/29/16 12/29/16 12/30/16 Cumulative From/Thru 14:59 22:59 06:59 12/29/16 11:07 - 12/30/16 05:37 Intake Total 250 ml 250 ml Output Total 1000 ml 100 ml 1100 ml Balance 250 ml -1000 ml -100 ml -850 ml Intake IV Total 250 ml 250 ml Output Urine Total 100 ml 100 ml Ultrafiltrate 1000 ml 1000 ml Exam General: Well appearing, elderly male, in no acute distress. Alert and oriented. HEENT: Normocephalic, atraumatic. External ears without defect. Pupils equal, round, and reactive to light and accommodation. Anicteric sclerae. Oral mucosa pink/moist. Neck: Supple, nontender, no JVD, bruits or lmphadenopathy appreciated. Cardiovascular: Bradycardic with regular rhythm, no murmurs, rubs or gallops heard. Pulmonary: Clear to auscultation bilaterally with no crackles, wheezes, or rhonchi. Abdomen: Bowel tones present. Soft, nontender, nondistended. No hepatosplenomegaly or masses appreciated. Extremities: Moderate pitting edema to just below the knee bilaterally. No cyanosis or clubbing. Left antecubital AV fistula, no erythema, tenderness or induration. Skin: Normal temperature, turgor, and texture; no rashes. Mild sacral erythema and a half centimeter abrasion on gluteal cleft. Neurological: Cranial nerves grossly intact.Normal muscle strength, tone, and bulk. No known gait impairment. Psychiatric: Normal mood and affect. Alert and oriented to person, place, and time. IVs and Medications Medications Reviewed: Medications were reviewed in detail Lab and Diagnostics Laboratory Tests Test 12/29/16 18:13 12/29/16 18:30 12/30/16 01:18 12/30/16 07:32 Urine Color Dark yellow (YELLOW) Urine Appearance Clear (CLEAR,HAZY) Urine pH 6.5 (5.0-8.0) Urine Specific [place] 1.015 (1.003-1.035) Urine Protein >300mg/dL (NEG,TRACE) Urine Glucose (UA) Negativemg/dL (NEGATIVE) Urine Ketones Negativemg/dL (NEGATIVE) Urine Occult Blood Negative (NEGATIVE) Urine Nitrite Negative (NEGATIVE) Urine Bilirubin Negative (NEGATIVE) Urine Urobilinogen Normalmg/dL (NORMAL) Urine Leukocyte Esterase Negative (NEGATIVE) Urine RBC 0-2/hpf (0-2) Urine WBC 0-5/hpf (0-5) Urine Epithelial Cells Occasional/hpf (NONE-MOD) Urine Crystals None seen (NONE SEEN) Urine Bacteria None/hpf (NONE-FEW) Urine Hyaline Casts None/lpf (NONE) Urine Granular Casts None seen (NONE SEEN) Urine Waxy Casts None seen (NONE SEEN) Urine Red Blood Cell Casts None seen (NONE SEEN) Urine White Blood Cell Casts None seen (NONE SEEN) Urine Mucus None seen (None Seen) Urine Trichomonas None seen (NONE SEEN) Urine Yeast None (NONE SEEN) Urine Culture Reflexed Not indicated Troponin T 0.385ug/L (0.0-0.011) 0.318ug/L (0.0-0.011) 0.376ug/L (0.0-0.011) Triglycerides Level 109mg/dL (0-149) Cholesterol Level 101mg/dL (100-199) LDL Cholesterol, Calculated 52.200mg/dL (0-99) VLDL Cholesterol 21.800mg/dL HDL Cholesterol 27mg/dL (>39) Cholesterol/HDL Ratio 3.74 (0.0-4.4) Thyroid Stimulating Hormone (TSH) 2.220uIU/mL (0.450-4.500) White Blood Count 6.0th/mm3 (3.8-10.1) Red Blood Count 2.74mil/mm3 (4.40-5.80) Hemoglobin 8.4g/dL (13.8-17.2) Hematocrit 26.9% (41.0-50.0) Mean Corpuscular Volume 98.2fL (81-100) Mean Corpuscular Hemoglobin 30.7pg (27.0-35.0) Mean Corpuscular Hemoglobin Concent 31.2% (32.0-37.0) Red Cell Distribution Width 15.6% (12.3-15.4) Platelet Count 128bil/L (150-400) Neutrophils (%) (Auto) 64.8% (40-74) Lymphocytes (%) (Auto) 21.5% (14-46) Monocytes (%) (Auto) 10.3% (4-12) Eosinophils (%) (Auto) 2.7% (0-5) Basophils (%) (Auto) 0.5% (0-3) Sodium Level 137mEq/L (134-144) Potassium Level 3.6mEq/L (3.5-5.2) Chloride Level 93mEq/L (97-108) Carbon Dioxide Level 28mmol/L (18-29) Blood Urea Nitrogen 23mg/dL (8-27) Creatinine 3.35mg/dL (0.76-1.27) Estimat Glomerular Filtration Rate 19mL/min (>59) Glucose Level 121mg/dL (60-99) Calcium Level 8.4mg/dL (8.5-10.1) Total Bilirubin 0.4mg/dL (0.0-1.2) Aspartate Amino Transf (AST/SGOT) 15U/L (0-50) Alanine Aminotransferase (ALT/SGPT) 8U/L (0-44) Alkaline Phosphatase 54U/L (25-160) Total Protein 5.1g/dL (6.4-8.4) Albumin 3.0g/dL (3.4-5.0) Result Diagram: 12/30/16 0732 12/30/16 0732 X-Rays, CTs and MRIs (12/29/16) X-RAY CHEST ONE VIEW, PORTABLE IMPRESSION: Cardiomegaly without overt heart failure. No definite pneumonia. Dictated and approved by: Hair Curran M.D. on 12/29/2016 at 10:58 12-lead ECG ECG 3rd degree AV block with junctional escape rhythm rate 45 Assessment & Plan Mr. Deleon is an 86-year-old gentleman with a history of chronic renal insufficiency on hemodialysis (T,Th,Sat) secondary to diabetic nephropathy, hypertension, and coronary artery disease status post stent placement in the . He presented to the emergency department with generalized weakness and was subsequently admitted for further evaluation and management of third degree AV block and possible NSTEMI. 1. AV block, 3rd degree. Present on admission. Active. -Uncertain chronicity. Possibly secondary to ischemic heart disease or medications. -Troponin elevated but stable and likely due to renal insufficiency. TSH/T4 wnl -Continue to hold carvedilol, per Cardiology for 48hrs. -Monitor on telemetry, transcutaneous pacer pads in place -Continue aspirin 81mg daily, lovastatin 40mg QHS. 2. Possible NSTEMI, acute. Present on admission. Resolved -Elevated troponin likely secondary to chronic renal failure and demand ischemia. ECG showed 3rd degree AV block no acute ST changes. Troponin trended, stable at ~0.3 -Patient does have known coronary artery disease and multiple risk factors: hypertension, hyperlipidemia, diabetes, age. Cardiology not recommending additional ischemic workup at this time. -Continue statin, aspirin 3. Chronic renal failure. Present on admission. Active -Likely secondary to diabetic and hypertensive nephropathy. Patient started on dialysis approximately 2 weeks ago. Missed Thurs dialysis due to diarrhea. -Dialysis, IV fluids and diuretics. Per nephrology. Appreciate recommendations -Hold furosemide and lisinopril, pending Nephrology recs. -Follow BMP 4. Diabetes mellitus, chronic. Present on admission. Presumed stable. -Home regimen: Regular insulin 70/30- 10U subq QAM; Regular insulin 8U subq HS -HbA1c 5.1 -Medium dose correctional insulin lispro ordered 5. Hypertension, chronic. Present on admission. Presumed stable. -Currently normotensive. -Hold medications, as above. 6. Anemia, unknown chronicity. Present on admission. Presumed stable. -Likely chronic and secondary to chronic renal insufficiency. -Hb 8.8 on admission. No signs/symptoms of blood loss or active bleeding. -Follow H/H Acetaminophen-fever/headache/mild/moderate pain Antiemetics, as needed Bowel regimen, as needed. Disposition: Patient will likely discharge home in 2-3 days pending further evaluation and management of third degree heart block with potential for pacemaker placement. Pain Evaluation: Adequate Pain Control VTE Prophylaxis: Sub-Q Heparin (Unfractionated) Resuscitation Status: DNR/DNI:Do Not Resuscitate/Intubate Attending Statement The patient was seen and examined together with Dr. Cuellar on 12/20/2016 and I agree with the history, exam and plan as outlined in the note above. . Chelsea Cuellar DO December 30, 2016 15:14 Bigg Ervin MD December 31, 2016 17:26
--- NOTE | 2016-12-30 15:38 | NUR ---
Social Work: Initial Assessment Data& Assessment: See Initial Assessment. EMR Reviewed. Patient admitted on 12/29/16 with non stemi and three degree AV block. SW met with patient at bedside to complete initial assessment. patient, SW role reviewed and discharge planning discussed. Patient alert and oriented x3. patient reports that hi PCP is Dr. Rita Cobos and his insurance is [employer] [place] [employer]. patient does not have LTC or VA benefits. Patient's re-admit score is 2 no risk. SW provided patient with Advance Directive/ DPOA paperwork. Patient lives at home with his in a one story home with 14 steps into the home from the garage and none outside of the home. Patient is independent at baseline and has a walker and cane if needed. Patient reports no HH or SNF history. patient does not have any discharge neds at this time. SW will continue to follow. SW provided contact information on patient's whiteboard. Plan: patient will likely discharge home with spouse via POV. SW will continue to follow. Ash Angel LMSW, CAROLINE Addendum: 12/30/16 at 1552 by ASH RMOERO Amended: Links added.
--- NOTE | 2016-12-30 15:51 | NUR ---
Tele Patient continues to be in a 3rd degree block, rate in the 40s today. Cardiology wants to continue to let Carvedalol clear and assess for pacemaker tomorrow. Patient is w/o complaints today. On bedrest and getting dialysis now. Will continue with POC.
--- NOTE | 2016-12-30 16:55 | NUR ---
Dialysis note: 2 1/2 hrs tx 1500 ml net UF Left upper arm fistula, #17 gauge needles used w/ no problems Pls see DTR for VS details Qb 250 Heparin prime given O2 @ at 2L via NC on during tx Tolerated tx, slept at intervals Fistula needle sites clotted w/in 10 min Stable condition at end of tx Report given to Charity AGUIRRE
[2016-12-31] VITALS (8 sets, daily range): BP systolic 154–211; BP diastolic 49–60; PULSE 41–47; RESP 16–20; O2SAT 96–98
[2016-12-31] MEDS: Insulin Human REGular 300 Unit/3 mL Inj SUBQ SCH ×2 (02:30→08:27)
[2016-12-31 03:43] LABS: BASOPHILS % (AUTO) 0.6 % (0-3); MONOCYTES % (AUTO) 9.7 % (4-12); Mean Corpuscular Volume 98.9 fL (81-100); NEUTROPHILS % (AUTO) 62.1 % (40-74); Platelet Count 142 bil/L (150-400)
--- NOTE | 2016-12-31 04:01 | NUR ---
Ambulation Pt needs frequent reminders that he needs to have SBA for safety when OOB. Pt alarm on post first time OOB without assist. Second time, bed alarm when off and pt wasn't aware of the need to ask for assistance. Pt has steady gait but d/t 3rd heart block, SBA for safety is warranted.
[2016-12-31] MEDS: Heparin 5,000 Unit/mL Inj SUBQ SCH ×2 (08:28→17:36)
[2016-12-31] MEDS ORDERED: Glucose 40% Oral Gel 15 Gm Tube PO PRN (10:10)
--- NOTE | 2016-12-31 10:21 | PCM.PNCARD ---
Subjective Date of service December 31, 2016 Subjective: No overnight events. The patient states that he is doing fine. Denies having any chest discomfort or SOB; denies feeling lightheaded, no presyncopal or syncopal episodes; he does not have symptoms of nocturnal pulmonary congestion. He tells me that periodically he has pain in rectal area which is alleviated after passing the gas. He is not constipates and does not have diarrhea. No hematochezia. Exam Vital Signs Vital Sign - Last Date Time Temp Pulse Resp B/P Pulse Ox O2 Delivery O2 Flow Rate FiO2 12/31/16 09:55 44 12/31/16 07:55 37.1 18 187/58 98 Room Air Intake and Output 12/30/16 12/30/16 12/31/16 Cumulative From/Thru 15:00 23:00 07:00 12/29/16 11:07 - 12/31/16 03:59 Intake Total 600 ml 850 ml Output Total 1500 ml 650 ml 3250 ml Balance -1500 ml -50 ml -2400 ml IV Total 250 ml TPN/PPN 600 ml 600 ml Output Urine Total 650 ml 750 ml Ultrafiltrate 1500 ml 2500 ml Additional Information: General: no ACD EENT: MMM, sclera unicteric Neck: supple, no thyromegaly Pulmo: normal breathing sounds bilaterally, no crackles, no wheezing Cardio: RRR, normal S1 and S2, systolic murmur 1/6 on the base. 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 Per telemetry he is still in complete heart block with HR mostly in 40s, but starting from yesterday 21 pm periodically HR is up to 50s-60s bpm, although he still stays in complete heart block. The patient is clinically asymptomatic # Decubitus ulcer - he has several tiny skin breakage on the medial aspect of the right buttocks; I cannot see any drainage or serve inflammation; # Hypertension - he is hypertensive and is managed by Nephrology team, Dr. Travis who started the patient on Spironolactone. # ESRD on Hemodialysis # Diabetes Mellitus - Plan: #[employer] Dr. Evans was connected and he is coming today to evaluate the patient for pacemaker implantation which likely will be done tomorrow. # Continue avoiding AV blocking agents. Problems: VTE Prophylaxis: Sub-Q Heparin (Unfractionated) Resuscitation Status: DNR/DNI:Do Not Resuscitate/Intubate Attending Statement Discussed with LYLE and agree. The patient's decubitus does not appear to be infected. He should proceed with permanent PM implantation. Scott Santos PA-C December 31, 2016 10:13 Bigg Marroquin MD January 01, 2017 07:36
[2016-12-31] MEDS ORDERED: 0.9% Sodium Chloride 1,000 ML IV PRN (10:35)
[2016-12-31] MEDS ORDERED: Vancomycin Inj 1,000 MG in IV Premix 1 EACH IV ONE (10:35)
--- NOTE | 2016-12-31 12:02 | PCM.PNNEPH ---
Subjective Date of Service December 31, 2016 Subjective Patient offers no new complaints. He denies any headache, chest pain, or shortness of breath. He is scheduled for a pacemaker placed tomorrow by Dr. Evans. Exam Vital Signs Vital Sign - Last Date Time Temp Pulse Resp B/P Pulse Ox O2 Delivery O2 Flow Rate FiO2 12/31/16 09:55 44 12/31/16 07:55 37.1 18 187/58 98 Room Air Intake and Output 12/30/16 12/30/16 12/31/16 Cumulative From/Thru 15:00 23:00 07:00 12/29/16 11:07 - 12/31/16 03:59 Intake Total 600 ml 850 ml Output Total 1500 ml 650 ml 3250 ml Balance -1500 ml -50 ml -2400 ml IV Total 250 ml TPN/PPN 600 ml 600 ml Output Urine Total 650 ml 750 ml Ultrafiltrate 1500 ml 2500 ml Exam Lungs were clear to auscultation. Heart is regular and rhythmic bradycardic once again. There are no extra beats noted. Abdomen is soft without any tenderness rebound guarding masses or splenomegaly. Extremities do not show any evidence of any clubbing, cyanosis, or edema. Skin turgor is good. Lab and Diagnostics Result Diagram: 12/31/16 0335 12/31/16 0335 X-Rays, CTs and MRIs (12/29/16) X-RAY CHEST ONE VIEW, PORTABLE IMPRESSION: Cardiomegaly without overt heart failure. No definite pneumonia. Dictated and approved by: Hair Curran M.D. 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 I have discussed this with Dr. Evans and once the pacemaker is in we will restart him on carvedilol or labetalol for blood pressure assistance. He is scheduled for dialysis on Sunday. Felix Travis DO December 31, 2016 12:02
[2016-12-31] MEDS: Insulin LISPRO 300 Unit/3 mL Inj SUBQ SCH ×3 (12:44→21:51)
--- NOTE | 2016-12-31 13:36 | CONS ---
[address] [address] CONSULTATION REPORT PATIENT: CRISELDA FOSS : 1930 MR#: [id number] ADMIT: 12/29/2016 JOB ID: [id number] DATE OF SERVICE: 12/31/2016 CHIEF COMPLAINT: Weakness. REFERRING PHYSICIAN: Dr. Marroquin. HISTORY OF PRESENT ILLNESS: The patient is an 86-year-old man who was admitted after experiencing weakness, wobbly legs, and falling, without any loss of consciousness. He was assisted by his . He had some difficulties last week related to constipation and weakness, had been seen in the emergency department at [facility], noted to have a slow pulse at that time but an EKG was not done. He was found to have a heart rate of 42 with complete heart block after his fall, and was brought to [facility] where he was evaluated by the hospitalist and seen in cardiology consultation by Dr. Marroquin. The patient has a history of progressive renal failure, with a fistula placement on his left arm and initiation of hemodialysis around two months ago. This has been uncomplicated, though he has had some postural lightheadedness following dialysis. He has history of coronary artery disease, last evaluated in 2005, at which time he had an abnormal myocardial perfusion scan followed by cardiac catheterization with stenting of his mid LAD. He had normal LV function at that time. He has not had any subsequent evaluation. He has a history of diabetes, on therapy with insulin. He has a history of hypertension and had been on carvedilol. This has been held over the last 48 hours and he remains in complete heart block with heart rates in the low 40s. He has recently been treated for a sacral decubitus ulcer which is healing well and has been uncomplicated. He attributes this to prolonged sitting for his dialysis treatments. His labs on admission show chronic anemia, chronic renal failure, normal potassium. He is not on any anticoagulation other than low-dose aspirin. He has been aware of occasional "skipped beats." He has not had any persistent tachyarrhythmias. He has not experienced any syncope. There is no history of cerebrovascular disease. He was evaluated with carotid Dopplers by his primary care physician which did not demonstrate any significant abnormalities. He does not smoke cigarettes. There is no history of CVA. No history of peripheral vascular disease. There is no family history of premature heart disease. MEDICATIONS: Prior to admission: 1. Aspirin 81 mg. 2. Carvedilol 25 mg b.i.d. (currently on hold). 3. Finasteride 5 mg daily. 4. Furosemide 20 mg daily. 5. Humulin insulin varying dose. 6. Lisinopril 20 mg daily. 7. Lovastatin 40 mg daily. 8. Nifedipine 90 mg daily. 9. Terazosin 10 mg h.s. 10. Vitamin D. ALLERGIES: None. REVIEW OF SYSTEMS: A 10-point review of systems unremarkable except as above. General: Denies any chills or fever or weight loss. GI: No history of ulcer disease or GI bleeding. : See HPI. GI: He has recently had some problems with rectal pain and cramping, having an enema last week followed by diarrhea. Neurologic: No history of TIA, CVA, or syncope. Hematologic: Easy bruising. Endocrine: Positive for diabetes, hyperlipidemia, no history of hypothyroidism. SOCIAL HISTORY: He is , lives in [place] with his , who was present at bedside during the history. He does not smoke cigarettes and rarely uses alcohol. PHYSICAL EXAMINATION: Shows a pleasant, alert, elderly man, in no distress. Telemetry currently showing complete heart block. Heart rate of 42, blood pressure 160/50. Mild conjunctival pallor without icterus. Soft left carotid bruit versus transmitted murmur. No JVD. Chest resonant to percussion and clear to auscultation. Heart rhythm slow and regular. There is a grade 1/6 to 2/6 short systolic murmur at the lower left sternal border. No diastolic murmur or gallop is appreciated. Abdomen is soft and nontender. No bruit. Femoral and pedal pulses are full. There is trace peripheral edema. Neurologic is grossly intact. LABS: X-ray, office and hospital records are reviewed. He has had elevated troponin. Potassiums are normal. He has chronic renal failure. TSH is normal. IMPRESSION: 1. Complete heart block with symptomatic bradycardia, so far stable, escape rhythm. 2. Coronary artery disease, status post stenting, asymptomatic. 3. Diabetes mellitus, on insulin. 4. Chronic renal failure, on hemodialysis. 5. Hypertension and presumed hypertensive heart disease. 6. Decubitus ulcer, has been evaluated by nursing. At this point showing just minor abrasion, no significant local or signs of systemic infection. PLAN: I reviewed patient's status and findings with the patient and his and discussed with Dr. Marroquin and Dr. Travis. The patient has clear indication for permanent pacemaker with symptomatic bradycardia and complete heart block. This is likely on the basis of hypertensive heart disease and progressive conduction abnormalities. The procedure of pacemaker, perioperative management, and hospitalization followup are discussed. Potential risks, complications, and alternatives are discussed. Because of the fistula in the patient's left arm, pacemaker will be implanted in the right pectoral area. CC: Dr. Marroquin CC: Dr. Travis. CC: Dr. Naylor or Yahir ?
--- NOTE | 2016-12-31 14:48 | DRSVH ---
[facility] [address] [place] [address] Echocardiogram Report Name: CRISELDA FOSS Study Date: 12/31/2016 Height: 69 in Hospital Exam Location: [facility] Weight: 181 lb Gender: Male BSA: 2.0 m2 : 1930 Age: 86 yrs BP: 154/54 mmHg Reason For Study: CAD, CHB Ordering Physician: Performed By: Eh Lucio Referring Physician: Tanya QUEEN Interpretation Summary The left ventricle is mildly dilated with well-preserved overall left ventricular systolic function with an ejection fraction visually estimated to be 60-65%. There is akinesis of the basal third of the inferior wall but no other obvious focal wall motion abnormalities. There is mild concentric left ventricular hypertrophy. The right ventricle is normal size. Right ventricular systolic function is borderline reduced. The right ventricular systolic pressure is estimated at 44 mmHg assuming a right atrial pressure of 8 mm Hg. The left atrium is severely dilated and the right atrium is moderately dilated. There is moderate mitral regurgitation and mild tricuspid regurgitation. There is mild aortic stenosis with an aortic valve mean gradient of 16 mmHg and a calculated aortic valve area of 1.8 cm2. There is a small pericardial effusion noted but no echocardiographic indications of cardiac tamponade. Procedure: A two-dimensional transthoracic echocardiogram with color flow and Doppler was performed. The study quality was technically adequate. There is no prior echocardiogram noted for this patient. The patient was in heart block during the exam. The heart rate ranged between 42 bpm during the study. Left Ventricle: The left ventricle is mildly dilated. There is mild concentric left ventricular hypertrophy. Overall left ventricular systolic function is preserved. The ejection fraction is estimated to be 60-65%. There is basal inferior wall akinesis. There are no other obvious focal wall motion abnormalities. Diastolic function could not be accurately assessed due to unobtainable data. Right Ventricle: The right ventricle is normal size. Right ventricular systolic function is borderline reduced. Atria: The left atrium is severely dilated. The right atrium is moderately dilated. The interatrial septum is intact with no evidence for an atrial septal defect. Mitral Valve: There is mild to moderate mitral annular calcification. The mitral valve leaflets appear mildly thickened, but open well. There is moderate mitral regurgitation. Aortic Valve: The aortic valve is trileaflet. Leaflet mobility is mildly reduced. The aortic valve is mildly calcified. There is mild aortic stenosis. The peak aortic velocity is 2.92 m/sec. The aortic valve mean gradient is 16 mmHg. The calculated aortic valve area is 1.8 cm2. The aortic valve area is 1.3 centimeters squared by planimetry. There is trace aortic regurgitation. Tricuspid Valve: The tricuspid valve is normal in structure and function. There is mild tricuspid regurgitation. The right ventricular systolic pressure is estimated at 44 mmHg assuming a right atrial pressure of 8 mm Hg. Pulmonic Valve: The pulmonic valve is normal in structure and function. There is trace pulmonic regurgitation. Great Vessels: The aortic root is normal size. The dimensions of the ascending aorta are normal. The pulmonary artery is normal size. The IVC is of normal diameter and collapses less than 50% with a sniff. This suggests a right atrial pressure of 8 mm Hg. Pericardium/ Pleura There is a small pericardial effusion noted. There are no echocardiographic indications of cardiac tamponade. There is no pleural effusion. MMode/2D Measurements & Calculations LVIDd: 5.9 cmLA dimension: 5.0 cm RA long axis: 5.8 cm LVOT diam LVIDs: 3.7 cm FS: 37.5 % LA A2 area: 30.2 cm RA area: 24.4 cm Ao root diam EPSS: 0.22 cmLA A4 area: 32.6 cm RA vol: 87.8 ml IVSd: 1.2 cm LA length (vol): 7.5 cm RA : 44.3 ml/m2 Aortic Jxn LVPWd: 1.1 cmLA vol: 112.1 ml asc Aorta LA vol index: 56.6 ml/m Diam: 3.3 cm IVC diam: 2.0 cm MARILYNN (plan) LV muniz. diameter/BSA LV sys. diameter/BSA : 1.3 cm2 (cm/m^2): 3.0 (cm/m^2): 1.9 Doppler Measurements & Calculations Ao V2 max MV E max bertrand MV E/A: 0.96 TR max bertrand : 292.0 cm/sec : 115.9 cm/sec Med Peak E' Bertrand : 299.7 cm/sec Ao max PG MV A max bertrand TR max PG : 34.1 mmHg : 121.1 cm/sec E/E' med: 23.3 : 35.9 mmHg Ao mean PG MVA(traced): 1.3 cm2 MV A dur PA V2 max : 16.2 mmHg : 0.16 sec : 107.4 cm/sec LVOT Max Bertrand PA mean PG : 145.4 cm/sec MARILYNN(I,D): 1.8 cm PA Accel Time sev ratio : 0.12 sec MV dec time Ao V2 mean LV V1 max PG MR flow rate : 0.18 sec : 187.8 cm/sec : 149.6 cm3/sec Ao V2 VTI: 67.9 cm LV V1 VTI MR PISA radius MARILYNN(V,D): 1.5 cm2 : 40.3 cm PA V2 mean MARILYNN indexed to BSA : 78.7 cm/sec (cm^2/m^2): 0.90 Reading Physician:02:47 PM
[2016-12-31] MEDS: Sodium Chloride LOK Flush 10 mL Syringe IVFLUSH SCH (17:34)
--- NOTE | 2016-12-31 18:35 | PCM.PNMED ---
Subjective Date of Service December 31, 2016 Subjective Hospital day 3. Continued bradycardic with hypertension overnight. Please note that he had dialysis yesterday with 1500 mL ultrafiltering removed. Patient notes that he will occasionally have a sudden, brief, dull pain in his rectum/anus. He denies bowel movement while here in the hospital. Focused ROS otherwise negative except as noted. Exam Vital Signs Vital Sign - Last Date Time Temp Pulse Resp B/P Pulse Ox O2 Delivery O2 Flow Rate FiO2 12/31/16 16:08 36.9 47 17 179/56 98 Room Air Intake and Output 12/30/16 12/30/16 12/31/16 Cumulative From/Thru 15:00 23:00 07:00 12/29/16 11:07 - 12/31/16 03:59 Intake Total 600 ml 850 ml Output Total 1500 ml 650 ml 3250 ml Balance -1500 ml -50 ml -2400 ml IV Total 250 ml TPN/PPN 600 ml 600 ml Output Urine Total 650 ml 750 ml Ultrafiltrate 1500 ml 2500 ml Exam General: Well appearing, elderly male, in no acute distress. Alert and oriented. HEENT: Normocephalic, atraumatic. External ears without defect. Pupils equal, round, and reactive to light and accommodation. Anicteric sclerae. Oral mucosa pink/moist. Neck: Supple, nontender, no JVD, bruits or lmphadenopathy appreciated. Cardiovascular: Bradycardic with regular rhythm, no murmurs, rubs or gallops heard. Pulmonary: Clear to auscultation bilaterally with no crackles, wheezes, or rhonchi. Abdomen: Bowel tones present. Soft, nontender, nondistended. No hepatosplenomegaly or masses appreciated. Extremities: Minimal pitting edema to just below the knee bilaterally. No cyanosis or clubbing. Left antecubital AV fistula, no erythema, tenderness or induration. Skin: Normal temperature, turgor, and texture; no rashes. Mild sacral erythema and a half centimeter abrasion on gluteal cleft. Neurological: Cranial nerves grossly intact.Normal muscle strength, tone, and bulk. No known gait impairment. Psychiatric: Normal mood and affect. Alert and oriented to person, place, and time. IVs and Medications Medications Reviewed: Medications were reviewed in detail Lab and Diagnostics Laboratory Tests Test 12/31/16 03:35 White Blood Count 6.4th/mm3 (3.8-10.1) Red Blood Count 2.74mil/mm3 (4.40-5.80) Hemoglobin 8.5g/dL (13.8-17.2) Hematocrit 27.1% (41.0-50.0) Mean Corpuscular Volume 98.9fL (81-100) Mean Corpuscular Hemoglobin 31.0pg (27.0-35.0) Mean Corpuscular Hemoglobin Concent 31.4% (32.0-37.0) Red Cell Distribution Width 15.3% (12.3-15.4) Platelet Count 142bil/L (150-400) Neutrophils (%) (Auto) 62.1% (40-74) Lymphocytes (%) (Auto) 24.4% (14-46) Monocytes (%) (Auto) 9.7% (4-12) Eosinophils (%) (Auto) 3.0% (0-5) Basophils (%) (Auto) 0.6% (0-3) Sodium Level 144mEq/L (134-144) Potassium Level 3.8mEq/L (3.5-5.2) Chloride Level 101mEq/L (97-108) Carbon Dioxide Level 30mmol/L (18-29) Blood Urea Nitrogen 21mg/dL (8-27) Creatinine 3.18mg/dL (0.76-1.27) Estimat Glomerular Filtration Rate 20mL/min (>59) Glucose Level 128mg/dL (60-99) Calcium Level 8.6mg/dL (8.5-10.1) Total Bilirubin 0.4mg/dL (0.0-1.2) Aspartate Amino Transf (AST/SGOT) 20U/L (0-50) Alanine Aminotransferase (ALT/SGPT) 8U/L (0-44) Alkaline Phosphatase 54U/L (25-160) Total Protein 5.1g/dL (6.4-8.4) Albumin 3.2g/dL (3.4-5.0) Result Diagram: 12/31/1633412/31/16334 Microbiology MRSA screen negative X-Rays, CTs and MRIs (12/29/16) X-RAY CHEST ONE VIEW, PORTABLE IMPRESSION: Cardiomegaly without overt heart failure. No definite pneumonia. Dictated and approved by: Hair Curran M.D. on 12/29/2016 at 10:58 12-lead ECG ECG 3rd degree AV block with junctional escape rhythm rate 45 Cardiac Echo Impressions Date of Service: 12/31/16 0837 Interpretation Summary The left ventricle is mildly dilated with well-preserved overall left ventricular systolic function with an ejection fraction visually estimated to be 60-65%. There is akinesis of the basal third of the inferior wall but no other obvious focal wall motion abnormalities. There is mild concentric left ventricular hypertrophy. The right ventricle is normal size. Right ventricular systolic function is borderline reduced. The right ventricular systolic pressure is estimated at 44 mmHg assuming a right atrial pressure of 8 mm Hg. The left atrium is severely dilated and the right atrium is moderately dilated. There is moderate mitral regurgitation and mild tricuspid regurgitation. There is mild aortic stenosis with an aortic valve mean gradient of 16 mmHg and a calculated aortic valve area of 1.8 cm2. There is a small pericardial effusion noted but no echocardiographic indications of cardiac tamponade. Read by Dr. Marroquin of cardiology. Assessment & Plan Mr. Deleon is an 86-year-old gentleman with a history of chronic renal insufficiency on hemodialysis (T,Th,Sun) secondary to diabetic nephropathy, hypertension, and coronary artery disease status post stent placement in the . He presented to the emergency department with generalized weakness and was subsequently admitted for further evaluation and management of third degree AV block and possible NSTEMI. Hospital day 3. 1. AV block, 3rd degree. Present on admission. -Uncertain chronicity. Possibly secondary to ischemic heart disease or medications. -Troponin elevated but stable and likely due to renal insufficiency. TSH/T4 wnl -Continue to hold carvedilol, per Cardiology for 48hrs. -Cardiology saw today, and plan for pacemaker placement tomorrow (01/01) -Monitor on telemetry, transcutaneous pacer pads in room -Continue aspirin 81mg daily, lovastatin 40mg QHS. 2. Unlikely NSTEMI, acute. Present on admission. Resolved -Elevated troponin likely secondary to chronic renal failure and demand ischemia. ECG showed 3rd degree AV block no acute ST changes. Troponin trended, stable at ~0.3 -Patient does have known coronary artery disease and multiple risk factors: hypertension, hyperlipidemia, diabetes, age. Cardiology not recommending additional ischemic workup at this time. -Continue statin, aspirin 3. Chronic renal failure on hemodialysis. Present on admission. -Likely secondary to diabetic and hypertensive nephropathy. Patient started on dialysis approximately 2 weeks ago. Missed Thurs dialysis due to questionable diarrhea. -Dialysis, IV fluids and diuretics. Per nephrology. Appreciate recommendations -Hold furosemide and lisinopril, pending Nephrology recs. - Nephrology starting spironolactone -Follow BMP -Cardiology initiated NS at 100 4. Diabetes mellitus, chronic. Present on admission. -Home regimen: Regular insulin 70/30- 10U subq QAM; Regular insulin 8U subq HS -HbA1c 5.1 -Medium dose correctional insulin lispro ordered 5. Hypertension, chronic. Present on admission. Poor control at time of admission -After discussion with nephrology (appreciate their expertise), initiating spironolactone - Anticipate restarting carvedilol once pacer in place -Question restarting lisinopril -Consideration for hydralazine overnight. 6. Anemia, unknown chronicity. Present on admission. Presumed stable. -Likely chronic and secondary to chronic renal insufficiency. -Hb 8.8 on admission. No signs/symptoms of blood loss or active bleeding. -Follow H/H Acetaminophen-fever/headache/mild/moderate pain Antiemetics, as needed Bowel regimen, as needed. Patient is admitted under inpatient status with expected length of stay greater than 2 midnights due to severity of presenting symptoms, risk of adverse event, and complexity of treatment plan. Disposition: Patient will likely discharge home in 2-3 days pending further evaluation and management of third degree heart block with potential for pacemaker placement. Pain Evaluation: Adequate Pain Control GI Prophylaxis: Not indicated VTE Prophylaxis: Sub-Q Heparin (Unfractionated) Resuscitation Status: DNR/DNI:Do Not Resuscitate/Intubate Attending Statement The patient was seen and examined together with Dr. Lopez on 12/31/2016 and I agree with the history, exam and plan as outlined in the note above. . Curtis Richardson DO December 31, 2016 18:25 Bigg Ervin MD December 31, 2016 18:50
[2017-01-01] VITALS (28 sets, daily range): BP systolic 129–209; BP diastolic 47–126; PULSE 42–72; RESP 16–26; O2SAT 93–97
[2017-01-01] MEDS: Heparin 5,000 Unit/mL Inj SUBQ SCH ×4 (00:10→22:26)
[2017-01-01] MEDS: Sodium Chloride LOK Flush 10 mL Syringe IVFLUSH SCH ×4 (00:10→22:34)
--- NOTE | 2017-01-01 02:54 | NUR ---
hypertension pts SBP high (180s-200s) HR low pt is in 3rd heart block rate 40s, called MD he wanted q30 minute BP to see the trend, after an hour reported findings to MD no new orders received cont q30 BP and documented on flow sheet. pt asymptomatic with this.
[2017-01-01 03:23] LABS: Mean Corpuscular Hemoglobin 30.8 pg (27.0-35.0); Mean Corpuscular Volume 97.4 fL (81-100)
[2017-01-01] MEDS ORDERED: 0.9% Sodium Chloride 250 ML ONE (07:51)
[2017-01-01] MEDS ORDERED: Heparin 10,000 Unit/1,000 mL NS Premix IV ONE (07:51)
[2017-01-01] MEDS ORDERED: Bupivacaine-MPF 0.5% 30 mL Inj ONE (07:51)
[2017-01-01] MEDS: Insulin LISPRO 300 Unit/3 mL Inj SUBQ SCH ×4 (08:00→20:47)
[2017-01-01] MEDS ORDERED: Vancomycin 1,000 mg Inj ONE ×2 (08:03→08:19)
[2017-01-01] MEDS ORDERED: Water for Injection 50 ML IV ONE (08:19)
[2017-01-01] MEDS ORDERED: Vancomycin 1,000mg/200 mL NS IV ONE (08:21)
--- NOTE | 2017-01-01 08:21 | NUR ---
Pacemaker Pt. transferred to cardiac lab for pacemaker at 0819.
[2017-01-01] MEDS ORDERED: fentaNYL-PF 50 mCg/mL 2 mL Inj ONE (08:42)
[2017-01-01] MEDS ORDERED: HYDROcodone-APAP 5-325 mg Tablet PO PRN (10:35)
[2017-01-01] MEDS ORDERED: Ondansetron 2 mg/mL 2 mL Inj IVPUSH PRN (10:35)
--- NOTE | 2017-01-01 12:00 | NUR ---
Report ([facility] to [facility]) Called report to [facility] nurse, Carol Carrasco RN. Pt. will be transferred from [facility] to [facility] after procedure. Addendum: 01/01/17 at 1508 by GAIL DICKERSON RN Belongings were transferred to [facility] 3012.
--- NOTE | 2017-01-01 12:17 | NUR ---
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 Will recheck tomorrow.
--- NOTE | 2017-01-01 13:00 | NUR ---
Pt arrived to unit Patient arrived to room 3012 s/p pacemaker insertion. VSS. Tele paced in the 60s. Patient A&Ox3. Dressing has small amount sero-sang drainage. Pressure dressing in place and outline of drainage marked. Sling on l arm. Patient SBA assist to bathroom. Patient denies pain/discomfort. at bedside, call light within patient reach.
[2017-01-01] MEDS: 0.9% Sodium Chloride 1,000 ML IV SCH ×3 (13:08→22:35)
--- NOTE | 2017-01-01 13:18 | DRSVH ---
PROCEDURE: X-RAY CHEST ONE VIEW, PORTABLE ([id number]) INDICATIONS: For new leads placed TECHNIQUE: One view of the chest was acquired. COMPARISON: [facility], CR, XR CHEST 1VW (PORTABLE), 12/29/2016, 11:32. FINDINGS: Surgical changes and devices: Dual-chamber right cardiac pacer present. Lungs and pleura: No pleural effusions or pneumothorax. Lungs are clear. Mediastinum: Mediastinal contours appear normal. Heart size is normal. Bones and chest wall: No suspicious bony lesions. Overlying soft tissues appear unremarkable. IMPRESSION: No immediate complications status post cardiac pacemaker placement. Dictated by: Guille ESPINOSA Interpreted: Patrick Amador MD on 01/01/2017 at 13:17 Transcribed by: FELICIA on 01/01/2017 at 13:17 Approved by: Patrick Amador M.D. on 01/01/2017 at 16:28
--- NOTE | 2017-01-01 14:09 | NUR ---
Post pacer Pt to [facility] following pacemaker placement at 1040. Ice pack placed to right upper site. Pt A&O. Denied pain throughout recovery. Scant drainage upon arrival to [facility]. Increased oozing noted and pressure dressing placed around 1200 without further oozing. Vitals stable, other than elevated BP. Special Officer Automat called, as well as Python Web Developer. Orders to restart pt on home doses of Carvedilol and Lisinopril. First doses given in [facility]. Pt taken to [facility], room 3012, at 1230. Report given to primary RNSarahi.
--- NOTE | 2017-01-01 16:13 | PCM.PNMED ---
Subjective Date of Service January 01, 2017 Subjective Mr. Deleon is an 86-year-old gentleman with a history of chronic renal insufficiency on hemodialysis (T,Th,Sat) secondary to diabetic nephropathy, hypertension, and coronary artery disease status post stent placement in the . He presented to the emergency department with generalized weakness and was subsequently admitted for further evaluation and management of third degree AV block and possible NSTEMI. Per nursing, patient hypertension overnight (180s-200) with rate in 40s. He remained asymptomatic and was normotensive this morning without intervention. Patient is status post pacemaker placement (01/01/17). He states that he is doing well and is without complaint. He reports abdominal discomfort and cramping following the procedure which resolved after a large bowel movement. He states that he did not tolerate oxycodone in the past and prefers to just take tylenol for pain. Exam Vital Signs Vital Sign - Last Date Time Temp Pulse Resp B/P Pulse Ox O2 Delivery O2 Flow Rate FiO2 01/01/17 11:10 70 23 197/53 96 01/01/17 10:44 Room Air 01/01/17 07:27 37.4 Intake and Output 12/31/16 12/31/16 01/01/17 Cumulative From/Thru 15:00 23:00 07:00 12/29/16 11:07 - 01/01/17 06:24 Intake Total 150 ml 640 ml 320 ml 1960 ml Output Total 500 ml 250 ml 4000 ml Balance 150 ml 140 ml 70 ml -2040 ml Intake Oral 150 ml 640 ml 320 ml 1110 ml IV Total 250 ml TPN/PPN 600 ml Output Urine Total 500 ml 250 ml 1500 ml Ultrafiltrate 2500 ml # Voids 3 3 # Bowel Movements 1 1 Exam General: Well appearing, elderly male, in no acute distress. HEENT: Normocephalic, atraumatic. Pupils equal, round, and reactive to light and accommodation. Oral mucosa pink/moist. Neck: Supple, nontender, no JVD, bruits or lmphadenopathy appreciated. Cardiovascular: Regular rate, rhythm, no murmurs, rubs or gallops heard. Chest/Lungs: Pacemaker incision site noted on the right, dressing is clean, dry and intact. Clear to auscultation bilaterally with no crackles, wheezes, or rhonchi. Abdomen: Bowel tones present. Soft, nontender, nondistended. No hepatosplenomegaly or masses appreciated. Extremities: No edema, cyanosis or clubbing. Left antecubital AV fistula, no erythema, tenderness or induration. Scattered ecchymosis of left upper ext. Skin: Normal temperature, turgor, and texture; no rashes. Neurological: Cranial nerves grossly intact without focal deficit. Alert and oriented to person, place and time. Psychiatric: Normal mood and affect. Appropriately interactive. IVs and Medications Medications Reviewed: Medications were reviewed in detail Lab and Diagnostics Laboratory Tests Test 01/01/17 03:05 White Blood Count 7.6th/mm3 (3.8-10.1) Red Blood Count 3.05mil/mm3 (4.40-5.80) Hemoglobin 9.4g/dL (13.8-17.2) Hematocrit 29.7% (41.0-50.0) Mean Corpuscular Volume 97.4fL (81-100) Mean Corpuscular Hemoglobin 30.8pg (27.0-35.0) Mean Corpuscular Hemoglobin Concent 31.6% (32.0-37.0) Red Cell Distribution Width 15.3% (12.3-15.4) Platelet Count 147bil/L (150-400) Sodium Level 138mEq/L (134-144) Potassium Level 3.5mEq/L (3.5-5.2) Chloride Level 96mEq/L (97-108) Carbon Dioxide Level 26mmol/L (18-29) Blood Urea Nitrogen 35mg/dL (8-27) Creatinine 3.91mg/dL (0.76-1.27) Estimat Glomerular Filtration Rate 16mL/min (>59) Glucose Level 150mg/dL (60-99) Calcium Level 8.8mg/dL (8.5-10.1) Result Diagram: 01/01/17 0305 01/01/17 0305 Microbiology MRSA screen negative X-Rays, CTs and MRIs (12/29/16) X-RAY CHEST ONE VIEW, PORTABLE IMPRESSION: Cardiomegaly without overt heart failure. No definite pneumonia. Dictated and approved by: Hair Curran M.D. on 12/29/2016 at 10:58 12-lead ECG ECG 3rd degree AV block with junctional escape rhythm rate 45 Cardiac Echo Impressions Date of Service: 12/31/16 0837 Interpretation Summary The left ventricle is mildly dilated with well-preserved overall left ventricular systolic function with an ejection fraction visually estimated to be 60-65%. There is akinesis of the basal third of the inferior wall but no other obvious focal wall motion abnormalities. There is mild concentric left ventricular hypertrophy. The right ventricle is normal size. Right ventricular systolic function is borderline reduced. The right ventricular systolic pressure is estimated at 44 mmHg assuming a right atrial pressure of 8 mm Hg. The left atrium is severely dilated and the right atrium is moderately dilated. There is moderate mitral regurgitation and mild tricuspid regurgitation. There is mild aortic stenosis with an aortic valve mean gradient of 16 mmHg and a calculated aortic valve area of 1.8 cm2. There is a small pericardial effusion noted but no echocardiographic indications of cardiac tamponade. Read by Dr. Marroquin of cardiology. Assessment & Plan 86-year-old gentleman with a history of chronic renal insufficiency on hemodialysis (T,Th,Sun) secondary to diabetic nephropathy, hypertension, and coronary artery disease status post stent placement in the . He presented with generalized weakness. Admitted for third degree AV block and possible NSTEMI. AV block, 3rd degree, status post pacemaker placement on 01/01. Present on admission. Resolved. -Uncertain chronicity. Possibly secondary to ischemic heart disease or medications. -Troponin elevated but stable and likely due to renal insufficiency. TSH/T4 wnl -Carvedilol was held for 48hrs without improvement and pacemaker placed today, per Cardiology. -Continue aspirin 81mg daily, lovastatin 40mg QHS. -Resume carvedilol now that pacer in place, appreciate Cardiology recommendations. Unlikely NSTEMI, acute. Present on admission. Resolved -Elevated troponin likely secondary to chronic renal failure and demand ischemia. ECG showed 3rd degree AV block no acute ST changes. Troponin trended, stable at ~0.3 -Patient does have known coronary artery disease and multiple risk factors: hypertension, hyperlipidemia, diabetes, age. Cardiology not recommending additional ischemic workup at this time. -Continue statin, aspirin. as above Chronic renal failure on hemodialysis. Present on admission. Stable -Likely secondary to diabetic and hypertensive nephropathy. Patient started on dialysis approximately 2 weeks ago. Missed Th (12/28) dialysis due to questionable diarrhea. -Dialysis, IV fluids and diuretics. Per nephrology. Appreciate recommendations -Continue spironolactone, hold furosemide and lisinopril. per Nephrology recs. -Follow BMP Diabetes mellitus, chronic. Present on admission. Presumed stable. -Home regimen: Regular insulin 70/30- 10U subq QAM; Regular insulin 8U subq HS -HbA1c 5.1 -Medium dose correctional insulin lispro Hypertension, chronic. Present on admission. Poor control at time of admission. Stable. -After discussion with nephrology (appreciate their expertise), Spironolactone started 01/01. -Resume carvedilol now that pacer in place -Continue Lisinopril and spironolactone, per Nephrology. Anemia, unknown chronicity. Present on admission. Presumed stable. -Likely chronic and secondary to chronic renal insufficiency. -Hb 8.8 on admission. No signs/symptoms of blood loss or active bleeding. -Follow H/H Acetaminophen-fever/headache/mild/moderate pain Antiemetics, as needed Bowel regimen, as needed. Disposition: Patient will likely discharge home in 1-2 days pending further evaluation and management of pacemaker and possible dialysis prior to discharge. Patient dialyzed (T, Th, Sat.) Pain Evaluation: Adequate Pain Control GI Prophylaxis: Not indicated VTE Prophylaxis: Sub-Q Heparin (Unfractionated) Resuscitation Status: DNR/DNI:Do Not Resuscitate/Intubate Attending Statement The patient was seen and examined together with Dr. Cuellar on 01/01/2017 and I agree with the history, exam and plan as outlined in the note above. . Chelsea Cuellar DO January 01, 2017 11:25 Bigg Ervin MD January 01, 2017 16:26
--- NOTE | 2017-01-01 17:57 | DI95 ---
[place] [address] INTERVENTIONAL CARDIAC CATHETERIZATION PATIENT: CRISELDA FOSS : 1930 MR#: [id number] ADMIT: 12/29/2016 JOB ID: [id number] DATE: 01/01/2017 REFERRING PHYSICIAN: Bigg Marroquin MD and Dr. JOE Sinclair. INDICATION: Complete heart block, symptomatic bradycardia. PROCEDURE: 1. DDDR pacer placement. 2. Conscious sedation. 3. Fluoroscopy. 4. Venography. DEVICE: The pacemaker is a [employer] model BI0339, serial #[id number], atrial lead [employer], model 2088TC/46, serial #[id number], ventricular lead [employer] model 2088TC/52, serial #[id number]. DESCRIPTION: The patient was brought to the cardiac catheterization lab in fasting condition. The right chest was prepped and draped in a sterile fashion. The patient received conscious sedation per protocol. Using the Seldinger technique, initially with fluoroscopy and anatomic landmarks, attempts were made to insert a wire into the extrathoracic subclavian vein. This was unsuccessful, and subclavian venography was performed with injection of 10 cc of Omnipaque via a peripheral right IV. With this, the vein was adequately visualized, but access was difficult. The patient was then placed in Trendelenburg position with improved access, and a guidewire was inserted. The right pectoral area was infiltrated with 1% lidocaine and 0.5% Marcaine for further local anesthetic. The pacer pocket was created with sharp and blunt dissection and electrocautery. The guidewire was tunneled into the pocket and a 6-Prydeinig sheath was inserted over the guidewire. A 2nd guidewire was then inserted and using a double wire technique two 6-Prydeinig sheaths were inserted over the wires. The ventricular lead was then inserted and manipulated to the RV apex where stable positioning was obtained. Adequate thresholds were obtained, and the active fixation pin was advanced. The atrial lead was then inserted and manipulated over a J-wire. Several positions were required in order to find adequate stability and thresholds. The final R-wave amplitude was 4.3 mV with the impedance of 550 ohms and a capture threshold of 0.5 V with a pulse width of 0.4 msec. The final atrial threshold showed a P-wave amplitude of 3.6 mV with lead impedance of 530 ohms and a capture threshold of 1.0 V at a pulse width of 0.4 msec. There was no diaphragmatic stimulation with 10 V pacing on either lead. The peel-away sheaths were then removed and stable positioning confirmed fluoroscopically and with threshold testing. The leads were secured with 0 Ethibond over plastic sleeves. The pocket was flushed with a vancomycin solution. The leads were connected to the pacemaker. This was placed in the pocket and secured with 0 Ethibond. Subcutaneous tissues were then closed with 2-0 Polysorb. Subcuticular tissues were closed with 4-0 Polysorb. The wound was covered with Steri-Strips, Telfa pad, and a Bioclusive dressing. The patient tolerated the procedure without difficulty and was taken to [facility] in stable condition. Followup chest x-ray was obtained and reviewed and showed stable lead positioning with no pulmonary complications. The patient will have a repeat x-ray, follow up for device interrogation and telemetry monitoring, and receive prophylactic antibiotics with vancomycin. The procedure, followup, and post procedural management were reviewed with the patient and his .
[2017-01-01] MEDS ORDERED: Vancomycin Inj 1,000 MG in IV Premix 1 EACH IV ONE (22:35)
[2017-01-02] VITALS (10 sets, daily range): BP systolic 104–196; BP diastolic 56–71; PULSE 55–70; RESP 15–20; O2SAT 95–98
--- NOTE | 2017-01-02 05:38 | NUR ---
Pacer dressing: Shadow drainage to pacer dressing unchanged through the shift, no new drainage noted. Right arm in sling, post pacer precautions in place. No reported pain. SBP has been 180-193 tonight, Coreg administered at HS as scheduled.
[2017-01-02 07:04] LABS: BASOPHILS % (AUTO) 0.1 % (0-3); EOSINOPHILS % (AUTO) 1.9 % (0-5); MONOCYTES % (AUTO) 9.3 % (4-12); Mean Corpuscular Hemoglobin 31.1 pg (27.0-35.0); Mean Corpuscular Volume 96.8 fL (81-100); NEUTROPHILS % (AUTO) 68.9 % (40-74); Platelet Count 151 bil/L (150-400)
[2017-01-02] MEDS: Heparin 5,000 Unit/mL Inj SUBQ SCH ×2 (08:46→16:49)
[2017-01-02] MEDS: Insulin LISPRO 300 Unit/3 mL Inj SUBQ SCH ×4 (08:47→22:00)
[2017-01-02] MEDS: Sodium Chloride LOK Flush 10 mL Syringe IVFLUSH SCH ×2 (08:47→16:49)
--- NOTE | 2017-01-02 09:53 | DRSVH ---
PROCEDURE: X-RAY CHEST, TWO VIEWS ([id number]) INDICATIONS: For new lead placement TECHNIQUE: 2 views of the chest were acquired. COMPARISON: [facility], CR, XR CHEST 1VW (PORTABLE), 01/01/2017, 10:56. FINDINGS: Surgical changes and devices: Stable positioning of dual chamber right cardiac pacemaker. Lungs and pleura: Small bibasilar pleural effusions are demonstrated in left basilar airspace opacity . No pneumothorax. Mediastinum: Mediastinal contours are normal. Heart size is enlarged. Bones and chest wall: No suspicious bony abnormalities. Soft tissues appear unremarkable. IMPRESSION: 1. Able position a right pacer. 2. Small basilar pleural effusions and left basilar airspace opacity consistent with compressive atel ectasis versus pneumonia. Dictated by: Guille Ferrari [facility] Interpreted: Malena Garcia MD on 01/02/2017 at 9:51 Transcribed by: JESSICA on 01/02/2017 at 9:53 Approved by: Malena Garcia MD, PhD on 01/02/2017 at 15:04
--- NOTE | 2017-01-02 11:05 | NUR ---
[facility] to [facility] dialysis Pt. transferred to [facility] for dialysis at 1005. On arrival, he was alert, oriented, and NIXON. R. chest dressing dry and intact with dry blood shadow. Pt. denied pain/tenderness. Received report from primary nurse, Santos Gardner RN.
--- NOTE | 2017-01-02 11:07 | NUR ---
SW - Continued Discharge Planning Data: Pt is on day 4 of hospitalization for three degree AV block, non stemi. EMR reviewed. Pt discussed in morning rounds and is not medically ready for discharge, will likely be here 1-2 more days. Nephrology is following. Pt likely to discharge home via family when medically ready. No needs assessed. SW will continue to follow. Assessment: Pt who is independent at baseline Plan: Pt likely to discharge home via POV when medically ready. No needs assessed. SW will continue to follow. CHU Russ
--- NOTE | 2017-01-02 11:23 | PCM.PNNEPH ---
Subjective Date of Service January 02, 2017 Subjective s/p pacemaker placement on 01/01/17. No acute issue overnight. Pending HD today. Exam Vital Signs Vital Sign - Last Date Time Temp Pulse Resp B/P Pulse Ox O2 Delivery O2 Flow Rate FiO2 01/02/17 10:27 60 01/02/17 09:35 36.8 18 187/62 96 Room Air Intake and Output 01/01/17 01/01/17 01/02/17 Cumulative From/Thru 15:00 23:00 07:00 12/29/16 11:07 - 01/02/17 06:17 Intake Total 250 ml 597 ml 2807 ml Output Total 500 ml 300 ml 4800 ml Balance -250 ml 297 ml -1993 ml Intake Oral 250 ml 300 ml 1660 ml IV Total 297 ml 547 ml TPN/PPN 600 ml Output Urine Total 500 ml 300 ml 2300 ml Ultrafiltrate 2500 ml # Voids 1 4 # Bowel Movements 1 1 3 Exam GA: AAOx3, NAD. HEENT: No pallor, no icteric sclerae, no JVD, no LAD, atraumatic, moist MM. Heart: RRR, soft systolic murmur noted, no R/G. Lungs: CTA, B/L. Abd: soft without any tenderness rebound guarding masses or splenomegaly. Extremities do not show any evidence of any clubbing, cyanosis, or edema. Skin: No gonzalez, ecchymosis noted on left arm, left AVF with good thrill and bruit. Lab and Diagnostics Result Diagram: 01/02/17 0602 01/02/17 0602 Microbiology MRSA screen negative X-Rays, CTs and MRIs (12/29/16) X-RAY CHEST ONE VIEW, PORTABLE IMPRESSION: Cardiomegaly without overt heart failure. No definite pneumonia. Dictated and approved by: Hair Curran M.D. on 12/29/2016 at 10:58 12-lead ECG ECG 3rd degree AV block with junctional escape rhythm rate 45 Cardiac Echo Impressions Date of Service: 12/31/16 0837 Interpretation Summary The left ventricle is mildly dilated with well-preserved overall left ventricular systolic function with an ejection fraction visually estimated to be 60-65%. There is akinesis of the basal third of the inferior wall but no other obvious focal wall motion abnormalities. There is mild concentric left ventricular hypertrophy. The right ventricle is normal size. Right ventricular systolic function is borderline reduced. The right ventricular systolic pressure is estimated at 44 mmHg assuming a right atrial pressure of 8 mm Hg. The left atrium is severely dilated and the right atrium is moderately dilated. There is moderate mitral regurgitation and mild tricuspid regurgitation. There is mild aortic stenosis with an aortic valve mean gradient of 16 mmHg and a calculated aortic valve area of 1.8 cm2. There is a small pericardial effusion noted but no echocardiographic indications of cardiac tamponade. Read by Dr. Marroquin of cardiology. Plan Impression 1. ESRD HD dependent 2. Complete heart block s/p pacemaker placement. 3. DM-2 with nephropathy. 4. Hypertension with hypertensive nephrosclerosis Plan: HD today. Increase lisinopril to 40 mg daily. Disposition as per primary team. Moraima Sifuentes MD January 02, 2017 11:23
--- NOTE | 2017-01-02 14:42 | NUR ---
Dialysis note 4 hr HD tx. 16 g needles placed without difficulty to fairly new IVAN fistula. QB 350. No hourly Heparin. 1500ml net UF removed. See DTR for complete vitals data. Pt rested comfortably through tx. BG 100 at lunch time and pt ate lunch. Gauze only (NO sureseals/pt has a bad skin tear from a sureseal) to arm post tx. Report given and pt returned to floor stable.
--- NOTE | 2017-01-02 18:37 | NUR ---
Wound Care Patient seen at bedside for pressure ulcer protocol. 86 yo male s/p pacemaker placement yesterday, also takes kidney dialysis. Sacrum is inspected for pressure related injuries and there are no open areas, recommend shield wipes be used twice a day. Patient on an appropriate bed. Skin tears at left upper arm and left wrist are dressed with xeroform and mepilex foam, recommend these stay on as long as possible so skin tears are not disturbed.
--- NOTE | 2017-01-02 18:44 | PCM.PNMED ---
Subjective Date of Service January 02, 2017 Subjective Patient was seen and examined at bedside today. Patient denies any chest pain, shortness of breath, nausea, vomiting, diarrhea. Overnight events: None Exam Vital Signs Vital Sign - Last Date Time Temp Pulse Resp B/P Pulse Ox O2 Delivery O2 Flow Rate FiO2 01/02/17 12:00 36.8 61 18 157/65 98 Room Air Intake and Output 01/01/17 01/01/17 01/02/17 Cumulative From/Thru 15:00 23:00 07:00 12/29/16 11:07 - 01/02/17 06:17 Intake Total 250 ml 597 ml 2807 ml Output Total 500 ml 300 ml 4800 ml Balance -250 ml 297 ml -1993 ml Intake Oral 250 ml 300 ml 1660 ml IV Total 297 ml 547 ml TPN/PPN 600 ml Output Urine Total 500 ml 300 ml 2300 ml Ultrafiltrate 2500 ml # Voids 1 4 # Bowel Movements 1 1 3 Exam Physical Exam: GEN: Patient was awake, alert, responding appropriately to questions HEENT: Pupils equal round and reactive to light, extraocular eye muscles intact , Neck soft supple, trachea midline, nomocephalic/atraumatic CV: +S1/S2, regular rate and rhythm, systolic murmur auscultated Respiratory: CTAB, no wheezes, rales, rhonchi GI: +bowel sounds x4, soft, compressible, nontender to palpation EXT: no clubbing, cyanosis, +1 pitting edema, right arm currently in a sling Skin: Multiple bruises in the extremities only secondary to thin skin Neuro: Cranial nerves II-XII grossly intact Psych: mood and affect were appropriate IVs and Medications Medications Reviewed: Medications were reviewed in detail Lab and Diagnostics Result Diagram: 01/02/17 0602 01/02/17 0602 Microbiology MRSA screen negative X-Rays, CTs and MRIs (12/29/16) X-RAY CHEST ONE VIEW, PORTABLE IMPRESSION: Cardiomegaly without overt heart failure. No definite pneumonia. Dictated and approved by: Hair Curran M.D. on 12/29/2016 at 10:58 12-lead ECG ECG 3rd degree AV block with junctional escape rhythm rate 45 Cardiac Echo Impressions Date of Service: 12/31/16 0837 Interpretation Summary The left ventricle is mildly dilated with well-preserved overall left ventricular systolic function with an ejection fraction visually estimated to be 60-65%. There is akinesis of the basal third of the inferior wall but no other obvious focal wall motion abnormalities. There is mild concentric left ventricular hypertrophy. The right ventricle is normal size. Right ventricular systolic function is borderline reduced. The right ventricular systolic pressure is estimated at 44 mmHg assuming a right atrial pressure of 8 mm Hg. The left atrium is severely dilated and the right atrium is moderately dilated. There is moderate mitral regurgitation and mild tricuspid regurgitation. There is mild aortic stenosis with an aortic valve mean gradient of 16 mmHg and a calculated aortic valve area of 1.8 cm2. There is a small pericardial effusion noted but no echocardiographic indications of cardiac tamponade. Read by Dr. Marroquin of cardiology. Assessment & Plan 86-year-old gentleman with a history of chronic renal insufficiency on hemodialysis (,,Sun) secondary to diabetic nephropathy, hypertension, and coronary artery disease status post stent placement in the . He presented with generalized weakness. Admitted for third degree AV block and possible NSTEMI. AV block, 3rd degree, status post pacemaker placement on 01/01. Present on admission. Resolved. -Uncertain chronicity. Possibly secondary to ischemic heart disease or medications. -Troponin elevated but stable and likely due to renal insufficiency. TSH/T4 wnl -Carvedilol was held for 48hrs without improvement and pacemaker placed today, per Cardiology. -Continue aspirin 81mg daily, lovastatin 40mg QHS. -Continue carvedilol now that pacer in place, appreciate Cardiology recommendations. Unlikely NSTEMI, acute. Present on admission. Resolved -Elevated troponin likely secondary to chronic renal failure and demand ischemia. ECG showed 3rd degree AV block no acute ST changes. Troponin trended, stable at ~0.3 -Patient does have known coronary artery disease and multiple risk factors: hypertension, hyperlipidemia, diabetes, age. Cardiology not recommending additional ischemic workup at this time. -Continue statin, aspirin. as above Chronic renal failure on hemodialysis. Present on admission. Stable -Likely secondary to diabetic and hypertensive nephropathy. Patient started on dialysis approximately 2 weeks ago. Missed (12/28) dialysis due to questionable diarrhea. -Dialysis, IV fluids and diuretics. Per nephrology. Appreciate recommendations -Continue spironolactone, hold furosemide and lisinopril. per Nephrology recs. -Follow BMP Diabetes mellitus, chronic. Present on admission. Presumed stable. -Home regimen: Regular insulin 70/30- 10U subq QAM; Regular insulin 8U subq HS -HbA1c 5.1 -Medium dose correctional insulin lispro Hypertension, chronic. Present on admission. Poor control at time of admission. Stable. -After discussion with nephrology (appreciate their expertise), Spironolactone started 01/01. -Resume carvedilol now that pacer in place -Restart lisinopril 40 mg Lisinopril -Continue spironolactone Anemia, unknown chronicity. Present on admission. Presumed stable. -Likely chronic and secondary to chronic renal insufficiency. -Hb 8.8 on admission. No signs/symptoms of blood loss or active bleeding. -Follow H/H Deconditioning -PT/OT Acetaminophen-fever/headache/mild/moderate pain Antiemetics, as needed Bowel regimen, as needed. Disposition: Patient is currently progressing well and seems to be clinically stable. Will have PT evaluate the patient tomorrow and decided the patient is safe for discharge home. GI Prophylaxis: Not indicated VTE Prophylaxis: Sub-Q Heparin (Unfractionated) Resuscitation Status: DNR/DNI:Do Not Resuscitate/Intubate Estela La DO January 02, 2017 18:44
--- NOTE | 2017-01-02 19:45 | NUR ---
Left unit/BP meds [place] [facility] [place]OC to dialyze. Pt hypertensive at am medication pass, spoke with rn hemodialysis charge, Pt's cardiac medications withheld, Pt's BP still slightly high upon returning to unit, Pt given withheld am medications at this time, oncoming NOC RN made aware of late medication administrations.
[2017-01-03] MEDS: Sodium Chloride LOK Flush 10 mL Syringe IVFLUSH SCH ×2 (00:57→08:34)
[2017-01-03] MEDS: Heparin 5,000 Unit/mL Inj SUBQ SCH ×2 (00:57→08:36)
[2017-01-03 01:46] VITALS: BP 186/62; PULSE 60; RESP 18; O2SAT 97
[2017-01-03 05:56] VITALS: BP 189/63; PULSE 60; RESP 18; O2SAT 96
[2017-01-03 06:57] LABS: Mean Corpuscular Hemoglobin 30.1 pg (27.0-35.0)
[2017-01-03] MEDS: Insulin LISPRO 300 Unit/3 mL Inj SUBQ SCH ×2 (08:00→11:37)
[2017-01-03 09:16] VITALS: BP 179/72; PULSE 60; RESP 18; O2SAT 98
--- NOTE | 2017-01-03 10:54 | PCM.PNNEPH ---
Subjective Date of Service January 03, 2017 Subjective Blood pressure persistently elevated. Patient had dialysis yesterday without complication. Exam Vital Signs Vital Sign - Last Date Time Temp Pulse Resp B/P Pulse Ox O2 Delivery O2 Flow Rate FiO2 01/03/17 09:16 37.1 60 18 179/72 98 Room Air Intake and Output 01/02/17 01/02/17 01/03/17 Cumulative From/Thru 15:00 23:00 07:00 12/29/16 11:07 - 01/03/17 06:22 Intake Total 300 ml 150 ml 3257 ml Output Total 1500 ml 100 ml 200 ml 6600 ml Balance -1500 ml 200 ml -50 ml -3343 ml Intake Oral 300 ml 150 ml 2110 ml IV Total 547 ml TPN/PPN 600 ml Output Urine Total 100 ml 200 ml 2600 ml Ultrafiltrate 1500 ml 4000 ml # Voids 41 45 # Bowel Movements 1 4 Exam GA: AAOx3, NAD. HEENT: No pallor, no icteric sclerae, no JVD, no LAD, atraumatic, moist MM. Heart: RRR, soft systolic murmur noted, no R/G. Lungs: CTA, B/L. Abd: soft without any tenderness rebound guarding masses or splenomegaly. Extremities do not show any evidence of any clubbing, cyanosis, or edema. Skin: No gonzalez, ecchymosis noted on left arm, left AVF with good thrill and bruit. pacemaker on right upper chest, no active bleeding. Lab and Diagnostics Result Diagram: 01/03/1725 01/03/17 06 Microbiology MRSA screen negative X-Rays, CTs and MRIs (12/29/16) X-RAY CHEST ONE VIEW, PORTABLE IMPRESSION: Cardiomegaly without overt heart failure. No definite pneumonia. Dictated and approved by: Hair Curran M.D. on 12/29/2016 at 10:58 12-lead ECG ECG 3rd degree AV block with junctional escape rhythm rate 45 Cardiac Echo Impressions Date of Service: 12/31/16 0837 Interpretation Summary The left ventricle is mildly dilated with well-preserved overall left ventricular systolic function with an ejection fraction visually estimated to be 60-65%. There is akinesis of the basal third of the inferior wall but no other obvious focal wall motion abnormalities. There is mild concentric left ventricular hypertrophy. The right ventricle is normal size. Right ventricular systolic function is borderline reduced. The right ventricular systolic pressure is estimated at 44 mmHg assuming a right atrial pressure of 8 mm Hg. The left atrium is severely dilated and the right atrium is moderately dilated. There is moderate mitral regurgitation and mild tricuspid regurgitation. There is mild aortic stenosis with an aortic valve mean gradient of 16 mmHg and a calculated aortic valve area of 1.8 cm2. There is a small pericardial effusion noted but no echocardiographic indications of cardiac tamponade. Read by Dr. Marroquin of cardiology. Plan Impression 1. ESRD HD dependent 2. Complete heart block s/p pacemaker placement 01/01/17. 3. DM-2 with nephropathy. 4. Hypertension with hypertensive nephrosclerosis Plan: Next hemodialysis on Continue lisinopril 40 mg daily, continue carvedilol 25 mg twice a day. We will ask architectural intern if calcium channel chrissy can be resumed. Disposition as per primary team. Moraima Sifuentes MD January 03, 2017 10:54
[2017-01-03 11:17] VITALS: PULSE 60
[2017-01-03] MEDS ORDERED: LISI-567 PO (12:36)
[2017-01-03] MEDS ORDERED: HYDR-4003 PO (12:36)
[2017-01-03] MEDS ORDERED: SPIR25TA PO (12:36)
[2017-01-03] MEDS ORDERED: ATOR10TA66 PO (12:36)
--- NOTE | 2017-01-03 12:43 | PCM.DICHF ---
CHF Discharge Instructions Date of Service: January 03, 2017 Dates of Hospitalization Date of Hospital Admission December 29, 2016 at 12:39 Date of Discharge: January 03, 2017 Providers Admitting Physician: Josafat Mcdonald Primary Care Physician: Denilson Kwan DO Attending Physician: Josafat Mcdonald Diagnosis at Time of Discharge Labs Ejection Fraction Laboratory Tests Test Range/Units 12/29/16 11:00 12/29/16 18:30 12/30/16 07:32 01/02/17 06:02 Hemoglobin A1c 4.8-5.6 % 5.1 Magnesium Level 1.6-2.6 mg/dL 2.1 Hold Rodriguez Top Tube Received Received Triglycerides Level 0-149 mg/dL 109 Cholesterol Level 100-199 mg/dL 101 LDL Cholesterol, Calculated 0-99 mg/dL 52.200 VLDL Cholesterol mg/dL 21.800 HDL Cholesterol >39 mg/dL 27 Cholesterol/HDL Ratio 0.0-4.4 3.74 Thyroid Stimulating Hormone (TSH) 0.450-4.500 uIU/mL 2.220 Troponin T 0.0-0.011 ug/L 0.376 Estimat Glomerular Filtration Rate >59 mL/min 14 Total Bilirubin 0.0-1.2 mg/dL 0.4 Aspartate Amino Transf (AST/SGOT) 0-50 U/L 31 Alanine Aminotransferase (ALT/SGPT) 0-44 U/L 15 Alkaline Phosphatase 25-160 U/L 60 Total Protein 6.4-8.4 g/dL 5.6 Test Range/Units 01/03/17 06:25 Sodium Level 134-144 mEq/L 136 Potassium Level 3.5-5.2 mEq/L 3.6 Chloride Level 97-108 mEq/L 97 Carbon Dioxide Level 18-29 mmol/L 25 Blood Urea Nitrogen 8-27 mg/dL 23 Creatinine 0.76-1.27 mg/dL 2.92 Glucose Level 60-99 mg/dL 134 Calcium Level 8.5-10.1 mg/dL 8.6 Phosphorus Level 2.5-4.9 mg/dL 3.0 Albumin 3.4-5.0 g/dL 3.0 Discharge Medications Other Medication Instructions You have received instructions on the medications your physician has prescribed at discharge. A list of these medications has been provided to you. Keep this and a list of all current medications with you. Keep the dates when you received the Flu and Pneumococcal (Pneumonia) Vaccines. Last known date of receiving Flu Vaccine Last known date of receiving Pneumococcal (Pneumonia) Vaccine Diet Diet Instructions CHF Low Salt diet ( 2 grams or less sodium/day) Choose foods and drinks with low or no salt. Remove salt shaker from the table. Read Nutritional Facts labels. Activity CHF Discharge Activity: Try not to overdue, Activity as energy allows (Do not raise your above your head or lift objects with your right arm until cleared by cardiology), Stop when short breath/pain/dizzy Weight Monitoring 1. Weigh yourself every day at the same time and write it down. 2. Take your weight log to your doctor visits. 3. Call your doctor if you gain 3-5 pounds over 2-3 days. 4. Your weight today is 172.40 lbs. Additional Instructions Smoking--Tobacco Use If you smoke, you are strongly encouraged to stop. If you have recently quit smoking, CONGRATULATIONS. For further information to stop smoking or to remain smoke-free, Follow Up Plan Follow Up Plan Please call to schedule an appointment with your PCP in the next week. Your PCP will need to send over a referral so that an appointment can be scheduled however the office is aware that you will be calling. Cardiology Follow-up Provider: 2 weeks (Please call the office for a follow up appointment with Refugio Ngo [phone]) Report or call your Doctor REPORT TO YOUR DOCTOR OR SEEK MEDICAL ATTENTION: *Shortness of breath or have more difficulty breathing. *Swelling of your feet, ankles, hands or abdomen. *Feeling tired with normal activity or experiencing dizziness or fainting. *Trouble sleeping or waking up feeling short of breath or coughing. *Chest pain or pressure. *Weight gain of 3-5 pounds over 2-3 days. *Inability to take medications or follow treatment plan Heart Attach warning signs HEART ATTACK WARNING SIGNS * Chest discomfort. *Discomfort or pain in one or both arms, back, neck, jaw or stomach. *Shortness of breath. *Breaking out in a cold sweat, nausea, or lightheadedness. If you're having heart attack warning signs: CALL . DON'T WAIT MORE THAN A FEW MINUTES - 5 MINUTES AT MOST - TO CALL . Additional Information Please remember that your next dialysis appointment is on . Estela La DO January 03, 2017 12:43
--- NOTE | 2017-01-03 13:50 | NUR ---
SW - Readiness for Discharge/Discharge Data: Pt is on day 5 of hospitalization for three degree AV block, non stemi. EMR reviewed. Pt is medically cleared for discharge. Pt has been cleared by PT for home. Pacer was placed 01/01. Pt to discharge home via family. No needs assessed. Assessment: Pt who is independent at baseline Plan: Pt likely to discharge home via POV. No needs assessed. CHU Russ
[2017-01-03 14:42] VITALS: BP 144/63; PULSE 62; RESP 18; O2SAT 98
--- NOTE | 2017-01-03 16:10 | PCM.DC.MED ---
Discharge Summary Date of Service January 03, 2017 Dates of Hospitalization Date of Hospital Admission December 29, 2016 at 12:39 Date of Discharge: January 03, 2017 Providers: Admitting Physician: Josafat Mcdonald Primary Care Physician: Denilson Kwan DO Attending Physician: Josafat Mcdonald Procedures XRay, CTs & MRIs (12/29/16) X-RAY CHEST ONE VIEW, PORTABLE IMPRESSION: Cardiomegaly without overt heart failure. No definite pneumonia. Dictated and approved by: Hair Curran M.D. on 12/29/2016 at 10:58 ECG 12 Lead ECG 3rd degree AV block with junctional escape rhythm rate 45 Cardiac Echo Impression Date of Service: 12/31/16 0837 Interpretation Summary The left ventricle is mildly dilated with well-preserved overall left ventricular systolic function with an ejection fraction visually estimated to be 60-65%. There is akinesis of the basal third of the inferior wall but no other obvious focal wall motion abnormalities. There is mild concentric left ventricular hypertrophy. The right ventricle is normal size. Right ventricular systolic function is borderline reduced. The right ventricular systolic pressure is estimated at 44 mmHg assuming a right atrial pressure of 8 mm Hg. The left atrium is severely dilated and the right atrium is moderately dilated. There is moderate mitral regurgitation and mild tricuspid regurgitation. There is mild aortic stenosis with an aortic valve mean gradient of 16 mmHg and a calculated aortic valve area of 1.8 cm2. There is a small pericardial effusion noted but no echocardiographic indications of cardiac tamponade. Read by Dr. Marroquin of cardiology. Brief History Mr. Deleon is an 86-year-old gentleman with a history of chronic renal insufficiency on hemodialysis (,) secondary to diabetic nephropathy, hypertension, and coronary artery disease status post stent placement in the . He presented to the emergency department via EMS for generalized weakness after his leg "gave out" after breakfast. He states that he has been in his usual health until two days ago when he presented to the hospital in [place] for constipation. He states that he thought he was constipated but it turns out he actually had diarrhea. He states that he was given an enema and that they didn't really seem to know what they were doing. He denies fever, chills, abdominal pain, bloody or dark stool. He reports that he is normally able to urinate but has not today and missed his dialysis due to his diarrhea. His last dialysis appointment was on Sunday (12/26/16). Additionally he denies dizziness, shortness of breath, chest pain, focal weakness, changes in speech or loss of consciousness. In the emergency department, vitals: 36.6, BP 126/36, HR 44, SpO2 95% on room air. Labs significant for Troponin 0.369, BUN 49, Creatinine 5.19, Sodium 138, Potassium 3.6, Chloride 93, Bicarb 26, Glucose 348. Hb 8.8, Hct 27.9. ECG 3rd degree AV block with junctional escape rhythm rate 45. Chest xray shows cardiomegaly and focal consolidation. Hospital Course 86-year-old gentleman with a history of chronic renal insufficiency on hemodialysis (,,Sun) secondary to diabetic nephropathy, hypertension, and coronary artery disease status post stent placement in the . He presented with generalized weakness. Admitted for third degree AV block and possible NSTEMI. Patient presented to the emergency room with the complaint of generalized weakness secondary to third-degree AV block. An NSTEMI was unlikely however the elevated troponins were most likely secondary to chronic renal failure and demand ischemia. The patient underwent pacemaker placement on 01/01/2017 the patient tolerated the procedure well. The patient was seen and evaluated by physical therapy who felt that the patient was strong enough to go home and he was able to do 7 stairs with no problem. Discussed patient's case today with Refugio Riley the cardiology PA who states that the patient is stable to go home however he needs to follow-up with cardiology. The patient's PCPs office has been contacted and made aware that the patient needs to have a referral sent over to cardiology for further workup. The patient is being discharged home in stable condition. For full hospital course see below: AV block, 3rd degree, status post pacemaker placement on 01/01. Present on admission. Resolved. -Uncertain chronicity. Possibly secondary to ischemic heart disease or medications. -Troponin elevated but stable and likely due to renal insufficiency. TSH/T4 wnl -Carvedilol was held for 48hrs without improvement and pacemaker placed today, per Cardiology. -Continue aspirin 81mg daily, lovastatin 40mg QHS. -Continue carvedilol now that pacer in place, appreciate Cardiology recommendations. Unlikely NSTEMI, acute. Present on admission. Resolved -Elevated troponin likely secondary to chronic renal failure and demand ischemia. ECG showed 3rd degree AV block no acute ST changes. Troponin trended, stable at ~0.3 -Patient does have known coronary artery disease and multiple risk factors: hypertension, hyperlipidemia, diabetes, age. Cardiology not recommending additional ischemic workup at this time. -Continue statin, aspirin. as above Chronic renal failure on hemodialysis. Present on admission. Stable -Likely secondary to diabetic and hypertensive nephropathy. Patient started on dialysis approximately 2 weeks ago. Missed Th (12/28) dialysis due to questionable diarrhea. -Dialysis, IV fluids and diuretics. Per nephrology. Appreciate recommendations -Continue spironolactone, hold furosemide and lisinopril. per Nephrology recs. -Follow BMP Diabetes mellitus, chronic. Present on admission. Presumed stable. -Home regimen: Regular insulin 70/30- 10U subq QAM; Regular insulin 8U subq HS -HbA1c 5.1 -Medium dose correctional insulin lispro Hypertension, chronic. Present on admission. Poor control at time of admission. Stable. -After discussion with nephrology (appreciate their expertise), Spironolactone started 01/01. -Resume carvedilol now that pacer in place -Restart lisinopril 40 mg Lisinopril -Continue spironolactone Anemia, unknown chronicity. Present on admission. Presumed stable. -Likely chronic and secondary to chronic renal insufficiency. -Hb 8.8 on admission. No signs/symptoms of blood loss or active bleeding. -Follow H/H Deconditioning -PT/OT Acetaminophen-fever/headache/mild/moderate pain Antiemetics, as needed Bowel regimen, as needed. Exam Vital Signs (Last) Date Time Temp Pulse Resp B/P Pulse Ox O2 Delivery O2 Flow Rate FiO2 01/03/17 14:42 36.9 62 18 144/63 98 Room Air Exam Physical Exam: GEN: Patient was awake, alert, responding appropriately to questions HEENT: Pupils equal round and reactive to light, extraocular eye muscles intact , Neck soft supple, trachea midline, nomocephalic/atraumatic CV: +S1/S2, regular rate and rhythm, no murmurs auscultated, pacemaker in place bandages blood-tinged no active bleeding, no signs of erythema Respiratory: CTAB, no wheezes, rales, rhonchi GI: +bowel sounds x4, soft, compressible, nontender to palpation EXT: no clubbing, cyanosis, edema Neuro: Cranial nerves II-XII grossly intact Psych: mood and affect were appropriate Test 12/29/16 11:00 12/29/16 18:30 12/30/16 07:32 01/02/17 06:02 Prothrombin Time 11.8sec (8.1-12.5) Prothromb Time International Ratio 1.10ratio Hemoglobin A1c 5.1% (4.8-5.6) Magnesium Level 2.1mg/dL (1.6-2.6) Hold Rodriguez Top Tube Received (Received) Triglycerides Level 109mg/dL (0-149) Cholesterol Level 101mg/dL (100-199) LDL Cholesterol, Calculated 52.200mg/dL (0-99) VLDL Cholesterol 21.800mg/dL HDL Cholesterol 27mg/dL (>39) Cholesterol/HDL Ratio 3.74 (0.0-4.4) Thyroid Stimulating Hormone (TSH) 2.220uIU/mL (0.450-4.500) Troponin T 0.376ug/L (0.0-0.011) Neutrophils (%) (Auto) 68.9% (40-74) Lymphocytes (%) (Auto) 19.5% (14-46) Monocytes (%) (Auto) 9.3% (4-12) Eosinophils (%) (Auto) 1.9% (0-5) Basophils (%) (Auto) 0.1% (0-3) Estimat Glomerular Filtration Rate 14mL/min (>59) Total Bilirubin 0.4mg/dL (0.0-1.2) Aspartate Amino Transf (AST/SGOT) 31U/L (0-50) Alanine Aminotransferase (ALT/SGPT) 15U/L (0-44) Alkaline Phosphatase 60U/L (25-160) Total Protein 5.6g/dL (6.4-8.4) Test 01/03/17 06:25 White Blood Count 7.5th/mm3 (3.8-10.1) Red Blood Count 2.99mil/mm3 (4.40-5.80) Hemoglobin 9.0g/dL (13.8-17.2) Hematocrit 28.7% (41.0-50.0) Mean Corpuscular Volume 96.0fL (81-100) Mean Corpuscular Hemoglobin 30.1pg (27.0-35.0) Mean Corpuscular Hemoglobin Concent 31.4% (32.0-37.0) Red Cell Distribution Width 15.0% (12.3-15.4) Platelet Count 137bil/L (150-400) Sodium Level 136mEq/L (134-144) Potassium Level 3.6mEq/L (3.5-5.2) Chloride Level 97mEq/L (97-108) Carbon Dioxide Level 25mmol/L (18-29) Blood Urea Nitrogen 23mg/dL (8-27) Creatinine 2.92mg/dL (0.76-1.27) Glucose Level 134mg/dL (60-99) Calcium Level 8.6mg/dL (8.5-10.1) Phosphorus Level 3.0mg/dL (2.5-4.9) Albumin 3.0g/dL (3.4-5.0) Microbiology Results MRSA screen negative Discharge Medications Discharge Medications Aspirin (Aspirin) 81 Mg Tablet 81 MG PO DAILY (Reported) Atorvastatin Calcium (Atorvastatin Calcium) 10 Mg Tablet 10 MG PO HS Prescribed by: ESTELA LA DO Carvedilol (Carvedilol) 25 Mg Tablet 25 MG PO BID (Reported) Finasteride (Finasteride) 5 Mg Tablet 5 MG PO DAILY (Reported) Furosemide (Furosemide) 20 Mg Tab 20 MG PO DAILY (Reported) Insulin Human Isophan/Regular (HUMulin 70/30 U100 Insulin Vial) 100 Unit/Ml Ml 10 UNIT SUBQ MORNING (Reported) Insulin Human Isophan/Regular (HUMulin 70/30 U100 Insulin Vial) 100 Unit/Ml Ml 8 UNIT SUBQ HS (Reported) Lisinopril (Lisinopril) 40 Mg Tablet 20 MG PO DAILY (Reported) Lisinopril (Lisinopril) 20 Mg Tablet 40 MG PO DAILY Prescribed by: ESTELA LA DO Lovastatin (Lovastatin) 40 Mg Tablet 40 MG PO HS (Reported) Nifedipine ER (Nifedipine ER) 90 Mg Tab.er.24 90 MG PO DAILY (Reported) Spironolactone (Aldactone) 25 Mg Tablet 50 MG PO DAILY Prescribed by: ESTELA LA DO Terazosin (Terazosin) 5 Mg Capsule 10 MG PO HS (Reported) Vit B Comp/C/FA/Iron/Vit E (Vitamin B Complex Tablet) 1 Each Tablet 1 EACH PO Dilysis Days (Reported) As needed Hydrocodone-Acetaminophen 5-325 mg (Hydrocodone-Acetaminophen 5-325 mg) 1 Each Tablet 1-2 TABLET PO Q4H PRN PRN For Moderate Pain Prescribed by: ESTELA LA DO Followup Plan Follow-up plan Please call to schedule an appointment with your PCP in the next week. Your PCP will need to send over a referral so that an appointment can be scheduled however the office is aware that you will be calling. Discharge Diet: Heart Healthy Discharge Activity: Other (please keep her arm in a sling do not raise it above your head until cleared by cardiology) Follow-up Provider: Denilson Kwan DO Follow-up with PCP in: 1 week (6) Provider: Refugio Ngo PA-C Follow-up in: 2 weeks (if an appointment has not been made please call to schedule an appointment) Time spent Greater than 35 minutes Estela La DO January 03, 2017 16:10
--- NOTE | 2017-01-03 17:32 | NUR ---
discharge home discharge instructions, medications and follow-up instructions reviewed with patient and spouse. questions answered at this time. patient and spouse verbalized understanding and agreed with plan of care. IV DC'd intact. prescriptions in packet. patient escorted to car by Delma Rogers CNA. to drive home
== END 2017-01-03 17:51 | disposition home or self-care (01) | DRG 242 ==
LOC: EDBD 09:47 → SED 09:47 → PCC 12:39 → MPC 01-01 10:41
PROVIDERS: ADMIT Internal Medicine; ATTEND Internal Medicine
PROC: 5A1D00Z (ICD-10-PCS; 2016-12-29)
PROC: 5A1D00Z (ICD-10-PCS; 2016-12-30)
PROC: 0JH606Z Insertion of Pacemaker, Dual Chamber into Chest Subcutaneous Tissue and Fascia, Open Approach (ICD-10-PCS; principal; 2017-01-01)
PROC: 02H63JZ Insertion of Pacemaker Lead into Right Atrium, Percutaneous Approach (ICD-10-PCS; 2017-01-01)
PROC: 02HK3JZ Insertion of Pacemaker Lead into Right Ventricle, Percutaneous Approach (ICD-10-PCS; 2017-01-01)
PROC: 5A1D00Z (ICD-10-PCS; 2017-01-02)
DX: I44.2 Atrioventricular block, complete (principal); N18.6 End stage renal disease; I13.0 Hypertensive heart and chronic kidney disease with heart failure and stage 1 through stage 4 chronic kidney disease, or unspecified chronic kidney disease; I24.8 Other forms of acute ischemic heart disease; Z99.2 Dependence on renal dialysis; Z79.4 Long term (current) use of insulin; L89.152 Pressure ulcer of sacral region, stage 2; E11.65 Type 2 diabetes mellitus with hyperglycemia; E11.21 Type 2 diabetes mellitus with diabetic nephropathy; I25.10 Atherosclerotic heart disease of native coronary artery without angina pectoris; D63.1 Anemia in chronic kidney disease; E78.5 Hyperlipidemia, unspecified; Z95.5 Presence of coronary angioplasty implant and graft; Z79.82 Long term (current) use of aspirin; R00.1 Bradycardia, unspecified